=== PATIENT | female | born 1960 | race Caucasian/White ===

== ENCOUNTER 2016-10-01 07:47 | Emergency (ER) | payer MEDICAID ==
[2016-10-01] MEDS ORDERED: DIPHENHYDRAMINE HCL 50 MG/ML VIAL IV ONE (08:10)
[2016-10-01] MEDS ORDERED: HALOPERIDOL LACTATE INJ 5 MG/1 ML VIAL IV ONE (08:10)
[2016-10-01] MEDS ORDERED: NORMAL SALINE 1000 ML 1,000 ML IV ONE (08:10)
--- NOTE | 2016-10-01 08:27 | ER Document Report ---
ED General - General Chief Complaint: Abdominal Pain Stated Complaint: HEADACHE Time Seen by Provider: 10/01/16 08:02 Mode of Arrival: Ambulatory Information source: Patient Notes: 55-year-old female history of anxiety COPD presents with complaints of restlessness panic attack headache abdominal pain body aches. Patient denies any fevers or chills notes symptoms have been ongoing since Friday. Patient just moved to this area 2 week ago TRAVEL OUTSIDE OF THE [place] IN LAST 30 DAYS: No - HPI Onset: Other Onset/Duration: Persistent Quality of pain: Achy Severity: Mild Pain Level: 1 Associated symptoms: Body/muscle aches, Headache, Other Exacerbated by: Denies Relieved by: Denies Similar symptoms previously: Yes - previous panic attacks Recently seen / treated by doctor: No - Related Data Allergies/Adverse Reactions: ketorolac [From Toradol] Allergy (Verified 10/01/16 07:53) Penicillins Allergy (Verified 10/01/16 07:53) tramadol Allergy (Verified 10/01/16 07:53) Past Medical History - Social History Smoking Status: Never Smoker Cigarette use (# per day): No Chew tobacco use (# tins/day): No Smoking Education Provided: No Family History: Reviewed & Not Pertinent Patient has suicidal ideation: No Patient has homicidal ideation: No Renal/ Medical History: Denies: Hx Peritoneal Dialysis Review of Systems - Review of Systems Notes: REVIEW OF SYSTEMS: CONSTITUTIONAL : Denies fever, chills, or sweats. Denies recent illness. EENT: Admits to tongue pain CARDIOVASCULAR: Denies chest pain. Denies palpitations or racing or irregular heart beat. Denies ankle edema. RESPIRATORY: Denies cough, cold, or chest congestion. Denies shortness of breath, difficulty breathing, or wheezing. GASTROINTESTINAL: Admits to abdominal pain GENITOURINARY: Denies difficulty urinating, painful urination, burning, frequency, blood in urine, or discharge. MUSCULOSKELETAL: Denies back or neck pain or stiffness. Denies joint pain or swelling. SKIN: Denies rash, lesions or sores. HEMATOLOGIC : Denies easy bruising or bleeding. LYMPHATIC: Denies swollen, enlarged glands. NEUROLOGICAL: Admits to headache PSYCHIATRIC: Admits to anxiety ALL OTHER SYSTEMS REVIEWED AND NEGATIVE. Dictation was performed using [employer] voice recognition software PHYSICAL EXAMINATION: GENERAL: Well-appearing, well-nourished and in no acute distress. HEAD: Atraumatic, normocephalic. EYES: Pupils equal round and reactive to light, extraocular movements intact, sclera anicteric, conjunctiva are normal. ENT: Ulceration noted on tongue NECK: Normal range of motion, supple without lymphadenopathy LUNGS: Breath sounds clear to auscultation bilaterally and equal. No wheezes rales or rhonchi. HEART: Regular rate and rhythm without murmurs ABDOMEN: Soft, nontender, nondistended abdomen. No guarding, no rebound. No masses appreciated. Musculoskeletal: Patient having rhythmic motions of tongue body NEUROLOGICAL: Cranial nerves grossly intact. Normal speech, normal gait. Normal sensory, motor exams PSYCH: Panic attack tardive dyskinesia SKIN: Warm, Dry, normal turgor, no rashes or lesions noted. Physical Exam - Vital signs Vitals: Temp Pulse Resp BP Pulse Ox 98.8 F 93 24 H 150/84 H 100 10/01/16 07:53 10/01/16 07:53 10/01/16 07:53 10/01/16 07:53 10/01/16 07:53 Course - Re-evaluation Re-evalutation: 10/01/16 08:28 Physical examination is consistent with someone who is having a panic attack, she is having rhythmic motions unable to stay still on the bed. Her physical examination otherwise notes no significant abdominal pain or any life- threatening issues. I believe this is all more psychological in nature 10/01/16 09:19 Patient's headache anxiety abdominal pain have all since resolved. Patient's resting comfortably, I will discharge her home at this time to follow-up with mental health outpatient After performing a Medical Screening Examination, I estimate there is LOW risk for ACUTE GLAUCOMA, TEMPORAL ARTERITIS, MENINGITIS, INCRANIAL HEMORRHAGE, or ISCHEMIC STROKE thus I consider the discharge disposition reasonable. I have reevaluated this patient multiple times and no significant life threatening changes are noted. The patient and I have discussed the diagnosis and risks, and we agree with discharging home with close follow-up with the understanding that symptoms and presentations can change. We also discussed returning to the Emergency Department immediately if new or worsening symptoms occur. We have discussed the symptoms which are most concerning (e.g., changing or worsening symptoms, new numbness or weakness, vomiting, fever) that necessitate immediate return. - Vital Signs Vital signs: Temp Pulse Resp BP Pulse Ox 98.8 F 93 24 H 150/84 H 100 10/01/16 07:53 10/01/16 07:53 10/01/16 07:53 10/01/16 07:53 10/01/16 07:53 - Laboratory Result Diagrams: 10/01/16 08:35 10/01/16 08:35 Laboratory results interpreted by me: 10/01/16 10/01/16 10/01/16 07:50 08:35 08:35 RBC 3.64 L Hgb 10.4 L Hct 30.8 L RDW 18.8 H Plt Count 460 H Sodium 135.2 L Carbon Dioxide 19 L Glucose 57 L Direct Bilirubin 0.5 H AST 98 H ALT 79 H Urine Ketones 20 H Discharge - Discharge Clinical Impression: Tardive dyskinesia Headache Qualifiers: Headache type: unspecified Headache chronicity pattern: acute headache Intractability: not intractable Qualified Code(s): R51 - Headache Abdominal pain Qualifiers: Abdominal location: generalized Qualified Code(s): R10.84 - Generalized abdominal pain Condition: Stable Disposition: HOME, SELF-CARE Additional Instructions: Please follow-up with the mental health discharge instructions that are provided to you for further evaluation and care
[2016-10-01 08:37] LABS: APPEARANCE,URINE SLIGHTLY-CLOUDY; BILIRUBIN,URINE NEGATIVE (NEGATIVE); GLUCOSE, URINE NEGATIVE (NEGATIVE); KETONES,URINE 20 mg/dL (NEGATIVE); LEUKOCYTE ESTERASE,URINE NEGATIVE (NEGATIVE); NITRITE,URINE NEGATIVE (NEGATIVE); PROTEIN,URINE NEGATIVE (NEGATIVE); URINE SPECIFIC GRAVITY 1.005; UROBILINOGEN,URINE NEGATIVE mg/dL (<2.0)
[2016-10-01 08:46] LABS: ABSOLUTE EOSINOPHILS # (AUTO) 0.1 10^3/uL (0.0-0.6); ABSOLUTE LYMPHOCYTES (AUTO) 2.1 10^3/uL (0.5-4.7); ABSOLUTE MONOCYTES (AUTO) 0.7 10^3/uL (0.1-1.4); ABSOLUTE NEUT (AUTO) 2.8 10^3/uL (1.7-8.2); BASOPHILS % (AUTO) 0.5 % (0-2); EOSINOPHILS % (AUTO) 1.4 % (0-6); HEMATOCRIT 30.8 % (36.0-47.0); HEMOGLOBIN 10.4 g/dL (12.0-15.5); HGB HCT DIFFERENCE 0.4; LYMPHOCYTES % (AUTO) 37.3 % (13-45); MEAN CORPUSCULAR HEMOGLOBIN 28.5 pg (27.0-33.4); MEAN CORPUSCULAR HGB CONC 33.6 g/dL (32.0-36.0); MEAN CORPUSCULAR VOLUME 85 fl (80-97); MONOCYTES % (AUTO) 11.6 % (3-13); RED BLOOD COUNT 3.64 10^6/uL (3.72-5.28); RED CELL DISTRIBUTION WIDTH 18.8 % (11.5-14.0); SEGMENTED NEUTROPHILS % (AUTO) 49.2 % (42-78); WHITE BLOOD COUNT 5.7 10^3/uL (4.0-10.5)
[2016-10-01 08:58] LABS: ALANINE AMINOTRANSFERASE 79 U/L (9-52); ALBUMIN 4.3 g/dL (3.5-5.0); ALKALINE PHOSPHATASE 109 U/L (38-126); ANION GAP 17 (5-19); ASPARTATE AMINO TRANSFERASE 98 U/L (14-36); BILIRUBIN,DIRECT 0.5 mg/dL (0.0-0.4); BILIRUBIN,TOTAL 0.7 mg/dL (0.2-1.3); BLOOD UREA NITROGEN 11 mg/dL (7-20); CARBON DIOXIDE 19 mmol/L (22-30); CHLORIDE 99 mmol/L (98-107); CREATININE RESULT 0.87 mg/dL (0.52-1.25); GLUCOSE 57 mg/dL (75-110); POTASSIUM 4.1 mmol/L (3.6-5.0); SODIUM 135.2 mmol/L (137-145); TOTAL PROTEIN 8.1 g/dL (6.3-8.2)
[2016-10-01 09:33] VITALS: BP 110/60
== END 2016-10-01 10:13 | disposition home or self-care (01) ==
LOC: ER 07:47
DX: G24.01 Drug induced subacute dyskinesia (principal); T50.905A Adverse effect of unspecified drugs, medicaments and biological substances, initial encounter; F41.0 Panic disorder [episodic paroxysmal anxiety]; R10.84 Generalized abdominal pain; R51 Headache; J44.9 Chronic obstructive pulmonary disease, unspecified; M79.1 Myalgia; Z88.8 Allergy status to other drugs, medicaments and biological substances; Z88.0 Allergy status to penicillin; Z88.5 Allergy status to narcotic agent
CPT/HCPCS: 99284; 96361; 96374; 96375; 36415; 85025; 80053; 81001; J1200; J1630; J7030

== ENCOUNTER 2016-10-03 03:54 | Emergency (ER) | payer MEDICAID ==
[2016-10-03 04:03] VITALS: BP 114/70
[2016-10-03] MEDS ORDERED: NORMAL SALINE 1000 ML 1,000 ML IV ONE (04:21)
--- NOTE | 2016-10-03 04:24 | ER Document Report ---
ED General - General Chief Complaint: Back Pain Stated Complaint: BACK PAIN Time Seen by Provider: 10/03/16 04:11 Notes: Patient is a 55-year-old female who comes emergency department for chief complaint of pain in her lower back, hips, and both legs. She states that she has had this before but it is worse tonight. She states she takes Neurontin and she took this but it did not help. She denies any injury. She denies any surgeries, she denies specific diagnosis of restless legs. She denies dysuria, fever, nausea or vomiting. She states she thinks she has bulging discs. She states the only other medication she takes is Seroquel. PMH also of anxiety and COPD. TRAVEL OUTSIDE OF THE [place] IN LAST 30 DAYS: No - Related Data Allergies/Adverse Reactions: ketorolac [From Toradol] Allergy (Verified 10/01/16 07:53) Penicillins Allergy (Verified 10/01/16 07:53) tramadol Allergy (Verified 10/01/16 07:53) Past Medical History - General Information source: Patient - Social History Smoking Status: Current Every Day Smoker Smoking Education Provided: Yes - <3 min Drug Abuse: None Lives with: Alone Family History: Reviewed & Not Pertinent Patient has suicidal ideation: No Patient has homicidal ideation: No Pulmonary Medical History: Reports: Hx COPD Renal/ Medical History: Denies: Hx Peritoneal Dialysis GI Medical History: Reports: Hx Gastroesophageal Reflux Disease Psychiatric Medical History: Reports: Hx Anxiety Past Surgical History: Reports: Hx Hysterectomy, Hx Orthopedic Surgery - knee - Immunizations Hx Diphtheria, Pertussis, Tetanus Vaccination: Yes Review of Systems - Review of Systems Constitutional: No symptoms reported EENT: No symptoms reported Cardiovascular: No symptoms reported Respiratory: No symptoms reported Gastrointestinal: No symptoms reported Genitourinary: No symptoms reported Female Genitourinary: No symptoms reported Musculoskeletal: See HPI Skin: No symptoms reported Hematologic/Lymphatic: No symptoms reported Neurological/Psychological: No symptoms reported Physical Exam - Vital signs Vitals: Temp Pulse Resp BP Pulse Ox 97.9 F 102 H 20 114/70 96 10/03/16 03:58 10/03/16 03:58 10/03/16 03:58 10/03/16 03:58 10/03/16 03:58 Interpretation: Normal - General General appearance: Alert, Other - patient talking rapidly, occassionally grabbing at her legs - HEENT Head: Normocephalic, Atraumatic Eyes: Normal Pupils: PERRL - Respiratory Respiratory status: No respiratory distress Chest status: Nontender Breath sounds: Normal. No: Decreased air movement, Wheezing Chest palpation: Normal - Cardiovascular Rhythm: Regular. No: Tachycardia, Bradycardia Heart sounds: Normal auscultation, S1 appreciated, S2 appreciated Murmur: No - Abdominal Inspection: Normal Distension: No distension Bowel sounds: Normal Tenderness: Nontender. No: Tender Organomegaly: No organomegaly - Back Back: Normal, Nontender. No: Tender, Vertebra tenderness - no tenderness noted ; no saddle anesthesia; normal UE and LE ROM, sensation, and strength - Extremities General upper extremity: Normal inspection, Nontender, Normal color, Normal ROM , Normal temperature General lower extremity: Normal inspection, Nontender, Normal color, Normal ROM , Normal temperature, Normal weight bearing. No: Mary's sign - Neurological Neuro grossly intact: Yes Cognition: Normal Orientation: AAOx4 [place] Com[place] Scale Eye Opening: Spontaneous [place] Coma Scale Verbal: Oriented [place] Coma Scale Motor: Obeys Commands Los Coma Scale Total: 15 Speech: Normal Motor strength normal: LUE, RUE, LLE, RLE Sensory: Normal - Psychological Associated symptoms: Agitated - intermittently agitated - Skin Skin Temperature: Warm Skin Moisture: Dry Skin Color: Normal Course - Re-evaluation Re-evalutation: Patient denies alcohol, but told nursing staff at [facility] she has been drinking and "cutting it up on the dance floor". Patient resting quietly unless she notices me or nursing staff enter the room and then she begins to yell and state she is "in so much pain", grabbing at her legs in the process. Patient states she is here because she was having trouble sleeping. Workup unremarkable, shows mild leukopenia, some normocytic anemia, unremarkable chemistry with slightly lower LFTs compared to 2 days ago, urinalysis unremarkable, alcohol negative, urine drug screen negative. Patient was initially given Benadryl along with IV fluids, on reevaluation her symptoms have resolved. She states she feels much better. Patient will be discharged with advice to follow-up with primary care for additional management, given cyclobenzaprine in addition to her current medications because of her reported difficulty sleeping, discussed return precautions, patient states satisfaction and agreement. - Vital Signs Vital signs: Temp Pulse Resp BP Pulse Ox 97.9 F 102 H 20 114/70 96 10/03/16 03:58 10/03/16 03:58 10/03/16 03:58 10/03/16 03:58 10/03/16 03:58 - Laboratory Result Diagrams: 10/03/16 04:37 10/03/16 04:37 Laboratory results interpreted by me: 10/03/16 10/03/16 04:37 04:37 WBC 3.7 L RBC 3.31 L Hgb 9.3 L Hct 27.9 L RDW 19.6 H Seg Neuts % (Manual) 19 L Lymphocytes % (Manual) 63 H Abs Neuts (Manual) 0.7 L Chloride 108 H BUN 4 L AST 89 H ALT 66 H Albumin 3.3 L Discharge - Discharge Clinical Impression: Restless legs syndrome (RLS) Condition: Stable Disposition: HOME, SELF-CARE Additional Instructions: Workup shows some anemia, I recommend additional evaluation of this with your primary care provider. No other concerning abnormalities are seen on your exam and workup tonight. Continue current medications, use the prescription if needed additionally for your legs. Follow-up with primary care for additional management of your symptoms. Return to emergency department for any concerning or worsening symptoms including fever, swelling, numbness, or any other concerning symptoms. Prescriptions: Cyclobenzaprine HCl [Flexeril 5 mg Tablet] 1 - 2 tab PO TID PRN #15 tablet PRN Reason:
[2016-10-03] MEDS ORDERED: DIPHENHYDRAMINE HCL 50 MG/ML VIAL IV ONE (05:20)
[2016-10-03 05:24] LABS: HEMATOCRIT 27.9 % (36.0-47.0); HEMOGLOBIN 9.3 g/dL (12.0-15.5); MEAN CORPUSCULAR HEMOGLOBIN 28.2 pg (27.0-33.4); MEAN CORPUSCULAR HGB CONC 33.5 g/dL (32.0-36.0); MEAN CORPUSCULAR VOLUME 84 fl (80-97); RED BLOOD COUNT 3.31 10^6/uL (3.72-5.28); RED CELL DISTRIBUTION WIDTH 19.6 % (11.5-14.0); WHITE BLOOD COUNT 3.7 10^3/uL (4.0-10.5)
[2016-10-03 05:35] LABS: APPEARANCE,URINE CLEAR; BILIRUBIN,URINE NEGATIVE (NEGATIVE); GLUCOSE, URINE NEGATIVE (NEGATIVE); KETONES,URINE NEGATIVE (NEGATIVE); LEUKOCYTE ESTERASE,URINE NEGATIVE (NEGATIVE); NITRITE,URINE NEGATIVE (NEGATIVE); PROTEIN,URINE NEGATIVE (NEGATIVE); URINE SPECIFIC GRAVITY 1.002; UROBILINOGEN,URINE NEGATIVE mg/dL (<2.0)
[2016-10-03 05:42] LABS: ALANINE AMINOTRANSFERASE 66 U/L (9-52); ALBUMIN 3.3 g/dL (3.5-5.0); ALKALINE PHOSPHATASE 69 U/L (38-126); ANION GAP 8 (5-19); ASPARTATE AMINO TRANSFERASE 89 U/L (14-36); BILIRUBIN,DIRECT 0.4 mg/dL (0.0-0.4); BILIRUBIN,TOTAL 0.5 mg/dL (0.2-1.3); BLOOD UREA NITROGEN 4 mg/dL (7-20); CALCIUM 8.6 mg/dL (8.4-10.2); CARBON DIOXIDE 24 mmol/L (22-30); CHLORIDE 108 mmol/L (98-107); CREATININE RESULT 0.58 mg/dL (0.52-1.25); GLUCOSE 94 mg/dL (75-110); POTASSIUM 4.3 mmol/L (3.6-5.0); SODIUM 140.1 mmol/L (137-145); TOTAL PROTEIN 6.8 g/dL (6.3-8.2)
[2016-10-03 05:45] LABS: ALCOHOL < 10 mg/dL (NONE DETECTED)
[2016-10-03 05:51] LABS: URINE BARBITURATES SCREEN NEGATIVE; URINE METHADONE SCREEN NEGATIVE; URINE OPIATES LOW NEGATIVE; URINE PHENCYCLIDINE SCREEN NEGATIVE
[2016-10-03 05:56] LABS: ANISOCYTOSIS 2+; BASOPHILS % (MANUAL) 0 % (0-2); BURR CELLS SLIGHT; EOSINOPHILS % (MANUAL) 2 % (0-6); HYPOCHROMASIA SLIGHT; LYMPHOCYTES % (MANUAL) 63 % (13-45); OVALOCYTES SLIGHT; POIKILOCYTOSIS SLIGHT; POLYCHROMASIA SLIGHT; SCHISTOCYTES SLIGHT; TOTAL CELLS COUNTED 100; TOXIC GRANULATION 1+; TOXIC VACUOLATION PRESENT
== END 2016-10-03 06:52 | disposition home or self-care (01) ==
LOC: ER 03:54
DX: G25.81 Restless legs syndrome (principal); M54.9 Dorsalgia, unspecified; M54.5 Low back pain; M25.551 Pain in right hip; M25.552 Pain in left hip; M79.604 Pain in right leg; M79.605 Pain in left leg; Z79.899 Other long term (current) drug therapy; F41.9 Anxiety disorder, unspecified; J44.9 Chronic obstructive pulmonary disease, unspecified; F17.210 Nicotine dependence, cigarettes, uncomplicated
CPT/HCPCS: 99283; 96374; 36415; 80307 ×2; 85025; 80053; 81001; J1200; J7030

== ENCOUNTER 2016-10-27 19:43 | Inpatient (IN) | payer MEDICAID ==
--- NOTE | 2016-10-27 22:01 | ER Document Report ---
ED General - General Mode of Arrival: Medic Information source: Emergency Med Personnel TRAVEL OUTSIDE OF THE [place] IN LAST 30 DAYS: No - HPI Onset: Just prior to arrival Severity: Severe <MADIHA MARIA - Last Filed: 10/27/16 23:53> <BERTO PURVIS - Last Filed: 10/28/16 01:51> <SONU IRVIN - Last Filed: 10/28/16 06:07> - General Notes: Patient is a 55-year-old female who presents to the emergency department today with complaints of a possible seizure. EMS states on arrival they were told that the patient took 2 Adderall prior to their arrival which she has never taken in the past. EMS states that the patient was with men who gave the history. 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 EMS states the patient initially complained of feeling dizzy and had difficulty ambulating secondary to muscle spasms. Patient has a history of cocaine and prescription drug abuse. Significant other has now arrived at the bedside and reports additional history. He states that today the patient had what he can best describe as muscle spasms. He states that during this episode she was still able to talk to him. He does mention that she has a history of recreational drug usage in the past including opiate pain medication and crack. He states that to his knowledge , the patient did not use any recreational drugs today and he states he is not aware of whether or not the patient took adderall. (MADIHA MARIA) - Related Data Allergies/Adverse Reactions: ketorolac [From Toradol] Allergy (Verified 10/01/16 07:53) Penicillins Allergy (Verified 10/01/16 07:53) tramadol Allergy (Verified 10/01/16 07:53) Past Medical History - General Information source: [facility] Records - Social History Smoking Status: Current Every Day Smoker Cigarette use (# per day): Yes Frequency of alcohol use: Social Drug Abuse: Cocaine, Prescription drugs Family History: Reviewed & Not Pertinent Pulmonary Medical History: Reports: Hx COPD Renal/ Medical History: Denies: Hx Peritoneal Dialysis GI Medical History: Reports: Hx Gastroesophageal Reflux Disease Psychiatric Medical History: Reports: Hx Anxiety Past Surgical History: Reports: Hx Hysterectomy, Hx Orthopedic Surgery - knee - Immunizations Hx Diphtheria, Pertussis, Tetanus Vaccination: Yes <MADIHA MARIA - Last Filed: 10/27/16 23:53> Review of Systems - Review of Systems -: Yes ROS unobtainable due to patient's medical condition <MADIHA MARIA - Last Filed: 10/27/16 23:53> Physical Exam <MADIHA MARIA - Last Filed: 10/27/16 23:53> <BERTO PURVIS - Last Filed: 10/28/16 01:51> <SONU IRVIN - Last Filed: 10/28/16 06:07> - Vital signs Vitals: Resp Pulse Ox 9 L 97 10/27/16 21:54 10/27/16 21:54 - Notes Notes: PHYSICAL EXAM GENERAL: Snoring respirations. Decorticate response to painful stimuli. HEAD: Normocephalic, atraumatic. EYES: Pupils 3mm and equal, round, and reactive to light. ENT: Oral mucosa moist, tongue midline. NECK: Full range of motion. Supple. Trachea midline. LUNGS: Clear to auscultation bilaterally, no wheezes, rales, or rhonchi. No respiratory distress. HEART: Regular rate and rhythm. No murmurs, gallops, or rubs. ABDOMEN: Soft. Non-distended. Bowel sounds present in all 4 quadrants. EXTREMITIES: No edema, radial and dorsalis pedis pulses 2/4 bilaterally. No cyanosis. NEUROLOGICAL: Responds to painful stimuli with decorticate response. Snoring respirations. PSYCH: unable to assess SKIN: Warm, diaphoretic, normal turgor. No rashes or lesions noted. (CANDACEMADIHA ROBLEDO) Course <MADIHA MARIA - Last Filed: 10/27/16 23:53> <BERTO PURVIS - Last Filed: 10/28/16 01:51> <SONU IRVIN - Last Filed: 10/28/16 06:07> - Re-evaluation Re-evalutation: 10/28/16 01:04 On arrival patient was posturing in such a manner as to be suspicious for possible dystonic reaction and was given Benadryl, shortly thereafter became responsive only to very deep sternal rub and then would draw her hands and legs up as though decorticate posturing and moan, CT of the head was ordered due to this decorticate posturing and the altered mental status as there is concern for possible intracranial hemorrhage, CT scan of the head was negative. Chest x -ray shows bilateral interstitial thickening possibly acute or chronic. CBC shows leukocytosis, acetaminophen, salicylates, alcohol are undetectable, urine drug screen is only positive for benzodiazepines. Given the fever and the leukocytosis I was concerned for possible meningitis but also possible serotonin syndrome, doubt neuroleptic malignant syndrome as the temperature was only 100.2. Lumbar puncture was performed, cefepime was given empirically. Fluids were given as well. Patient is starting to wake up somewhat more but is still not making any sense, still withdraws from painful stimuli, occasionally arches her back and has rhythmic flexion extension of her arms and legs however this is not completely consistent with seizure activity as she will open and close her eyes during these episodes and appears to be trying to talk although her words do not make any sense. 10/28/16 01:51 CMP shows elevated creatinine 1.58, BUN normal at 13.46, salicylates, alcohol and acetaminophen all undetectable, CK-MB is 3.52, troponin 0 0.012, ABG shows respiratory acidosis with pH of 7.34 and a PCO2 of 51.4 urine test negative, urinalysis negative, CBC shows leukocytosis of 15.6, hemoglobin low at 10.8, platelets slightly elevated at 560 (BERTO PURVIS) 10/28/16 06:06 I have continued to monitor the patient. On most recent evaluation patient's sleeping well. She is arousable but is confused when you arouse her. This is consistent with what she has been like since I took over her care and is consistent with how she was with Dr. Purvis. I am still waiting to discuss potential admission with the hospitalist. (SONU IRVIN) - Vital Signs Vital signs: Temp Pulse Resp BP Pulse Ox 16 121/55 L 95 10/28/16 04:31 10/28/16 04:31 10/28/16 04:31 Procedures - Lumbar Puncture Lumbar puncture Time completed: 00:45 Consent obtained: No - altered mental status, possible meningitis Lumbar puncture pre-procedure: Sterile PPE donned, Betadine prep applied, Sterile drapes applied Patient position: Lying Needle size: 20 Lumbar puncture location: L4-L5 interspace Anesthetic type: 1% Lidocaine mL's of anesthetic: 2 Amount/type of drainage: 6 mL clear Number of attempts: 1 Complications: No <KLOCEK,BERTO - Last Filed: 10/28/16 01:51> Critical Care Note - Critical Care Note Total time excluding time spent on procedures (mins): 75 <BERTO PURVIS - Last Filed: 10/28/16 01:51> Discharge <MADIHA MARIA - Last Filed: 10/27/16 23:53> <BERTO PURVIS - Last Filed: 10/28/16 01:51> <SONU IRVIN - Last Filed: 10/28/16 06:07> - Discharge Clinical Impression: Altered mental status Scribe Documentation - Scribe Written by Scribe:: Vidya Paz, 10/27/2016 2201 acting as scribe for :: Hyun <MADIHA MARIA - Last Filed: 10/27/16 23:53>
--- NOTE | 2016-10-27 22:27 | RADIOLOGY REPORT (SQ) ---
EXAM DESCRIPTION: CT HEAD WITHOUT COMPLETED DATE/TIME: 10/27/2016 10:10 pm REASON FOR STUDY: AMS COMPARISON: None. TECHNIQUE: Axial images acquired through the brain without intravenous contrast. Images reviewed wi th bone, brain and subdural windows. Images stored on PACS. All CT scanners at this facility use dose modulation, iterative reconstruction, and/or weight based d osing when appropriate to reduce radiation dose to as low as reasonably achievable (ALARA). [facility]: Dose Right [facility]: CareDose [facility]: Dose Right [facility]: Teradose 4D [facility]: Smart Sencera RADIATION DOSE: mGy. LIMITATIONS: None. FINDINGS: VENTRICLES: Age-appropriate. CEREBRUM: No masses. No hemorrhage. No midline shift. Areas of low density in the white matter mos t likely due to chronic micro-vascular ischemic change. CEREBELLUM: No masses. No hemorrhage. No alteration of density. EXTRAAXIAL SPACES: Mild age-related involutional change. No fluid collections. No masses. ORBITS AND GLOBE: No intra- or extraconal masses. Normal contour of globe without masses. CALVARIUM: No fracture. PARANASAL SINUSES: Mild left sphenoid and ethmoid mucosal thickening. SOFT TISSUES: No mass or hematoma. OTHER: No other significant finding. IMPRESSION: No hemorrhage. No midline shift. Areas of low density in the white matter most likely due to chronic micro-vascular ischemic change. TECHNICAL DOCUMENTATION: JOB ID: [id number] Quality ID # [id number]: Final reports with documentation of one or more dose reduction techniques (e.g., Au tomated exposure control, adjustment of the mA and/or kV according to patient size, use of iterative reconstruction technique) 2010 [email or web address]- All Rights Reserved
--- NOTE | 2016-10-27 22:37 | RADIOLOGY REPORT (SQ) ---
EXAM DESCRIPTION: CHEST PA/LAT COMPLETED DATE/TIME: 10/27/2016 10:10 pm REASON FOR STUDY: AMS COMPARISON: None. EXAM PARAMETERS: NUMBER OF VIEWS: two views TECHNIQUE: Digital Frontal and Lateral radiographic views of the chest acquired. RADIATION DOSE: NA LIMITATIONS: none FINDINGS: LUNGS AND PLEURA: Diffuse Bilateral Interstitial thickening. No consolidation, masses or pneumothorax. No pleural effusion. MEDIASTINUM AND HILAR STRUCTURES: No masses or contour abnormalities. HEART AND VASCULAR STRUCTURES: Heart normal size. BONES: No acute findings. HARDWARE: None in the chest. OTHER: No other significant finding. IMPRESSION: Diffuse Bilateral Interstitial thickening, possibly chronic. No consolidation, masses o r pneumothorax. No pleural effusion. TECHNICAL DOCUMENTATION: JOB ID: [id number] [employer]- All Rights Reserved
[2016-10-27] MEDS ORDERED: LIDOCAINE 1% INJ-PF (10 MG/ML) 30 ML SDV INJ ONE (22:45)
[2016-10-27] MEDS ORDERED: NALOXONE HCL INJ 2 MG/2 ML DISP.SYRIN IV ONE (22:53)
[2016-10-27] MEDS ORDERED: NORMAL SALINE 1000 ML 1,000 ML IV PRN (23:20)
[2016-10-27] MEDS ORDERED: CEFEPIME 1 GM/D5W RTU 1 GM/50 ML RTUPB IV ONE (23:22)
[2016-10-28] MEDS ORDERED: CEFEPIME 1 GM/D5W RTU 1 GM/50 ML RTUPB IV ONE (00:08)
[2016-10-28 01:35] LABS: GLUCOSE,CSF 70 mg/dL (40-70)
[2016-10-28 01:59] LABS: APPEARANCE ALL TUBES CLEAR; RBC SIDE 1 127
[2016-10-28 02:03] LABS: RBC DILUENT USED NONE USED; RBC DILUTION FACTOR 1
[2016-10-28 02:09] LABS: RBC AVERAGE 162.5; RBC SIDE 2 198; TOTAL RBC SQUARES COUNTED 125
[2016-10-28 02:11] LABS: WHITE BLOOD CELL,CSF 2 /uL (0-5)
[2016-10-28 02:27] LABS: APPEARANCE ALL TUBES CLEAR
[2016-10-28 02:28] LABS: RBC AVERAGE 1.5; RBC DILUENT USED NONE USED; RBC DILUTION FACTOR 1; RBC SIDE 1 2; RBC SIDE 2 1; TOTAL RBC SQUARES COUNTED 225
[2016-10-28 02:29] LABS: WHITE BLOOD CELL,CSF 5 /uL (0-5)
[2016-10-28 06:17] LABS: ARTERIAL BLOOD BASE EXCESS 0.5 mmol/L
[2016-10-28 06:18] LABS: URINE BARBITURATES SCREEN NEGATIVE; URINE METHADONE SCREEN NEGATIVE; URINE OPIATES LOW NEGATIVE; URINE PHENCYCLIDINE SCREEN NEGATIVE
[2016-10-28 06:20] LABS: APPEARANCE,URINE CLEAR; BILIRUBIN,URINE NEGATIVE (NEGATIVE); GLUCOSE, URINE NEGATIVE (NEGATIVE); KETONES,URINE NEGATIVE (NEGATIVE); LEUKOCYTE ESTERASE,URINE NEGATIVE (NEGATIVE); NITRITE,URINE NEGATIVE (NEGATIVE); PROTEIN,URINE NEGATIVE (NEGATIVE); UROBILINOGEN,URINE NEGATIVE mg/dL (<2.0)
[2016-10-28 06:22] LABS: ABSOLUTE BASOPHILS # (AUTO) 0.1 10^3/uL (0.0-0.2); ABSOLUTE LYMPHOCYTES (AUTO) 0.9 10^3/uL (0.5-4.7); ABSOLUTE MONOCYTES (AUTO) 0.4 10^3/uL (0.1-1.4); ABSOLUTE NEUT (AUTO) 14.2 10^3/uL (1.7-8.2); BASOPHILS % (AUTO) 0.5 % (0-2); EOSINOPHILS % (AUTO) 0.1 % (0-6); HEMATOCRIT 32.8 % (36.0-47.0); HEMOGLOBIN 10.8 g/dL (12.0-15.5); HGB HCT DIFFERENCE -0.4; LYMPHOCYTES % (AUTO) 5.8 % (13-45); MEAN CORPUSCULAR HEMOGLOBIN 28.5 pg (27.0-33.4); MEAN CORPUSCULAR VOLUME 86 fl (80-97); MONOCYTES % (AUTO) 2.8 % (3-13); RED CELL DISTRIBUTION WIDTH 18.9 % (11.5-14.0); SEGMENTED NEUTROPHILS % (AUTO) 90.8 % (42-78); WHITE BLOOD COUNT 15.6 10^3/uL (4.0-10.5)
[2016-10-28 06:25] LABS: PROTHROMBIN TIME 13.6 SEC (11.4-15.4)
[2016-10-28 06:26] LABS: ALANINE AMINOTRANSFERASE 54 U/L (9-52); ALBUMIN 4.5 g/dL (3.5-5.0); ALCOHOL < 10 mg/dL (NONE DETECTED); ALKALINE PHOSPHATASE 128 U/L (38-126); ASPARTATE AMINO TRANSFERASE 55 U/L (14-36); BILIRUBIN,DIRECT 0.6 mg/dL (0.0-0.4); BILIRUBIN,TOTAL 0.8 mg/dL (0.2-1.3); BLOOD UREA NITROGEN 13 mg/dL (7-20); CARBON DIOXIDE 23 mmol/L (22-30); CHLORIDE 98 mmol/L (98-107); CREATINE KINASE 120 U/L (30-135); CREATININE RESULT 1.58 mg/dL (0.52-1.25); GLUCOSE 98 mg/dL (75-110); PARTIAL THROMBOPLASTIN TIME 30.6 SEC (23.5-35.8); SODIUM 140.8 mmol/L (137-145); TOTAL PROTEIN 8.9 g/dL (6.3-8.2)
[2016-10-28 06:28] LABS: ANION GAP 20 (5-19); CREATINE KINASE MB 3.52 ng/mL (<4.55); TROPONIN I < 0.012 ng/mL
[2016-10-28] MEDS ORDERED: PROMETHAZINE HCL 25 MG TABLET PO PRN (08:10)
[2016-10-28] MEDS ORDERED: IPRATROPIUM/ALBUTEROL 0.5-2.5 MG/3 ML AMPUL NEB PRN (08:10)
[2016-10-28] MEDS ORDERED: ACETAMINOPHEN 650 MG SUPP.RECT PR PRN (08:10)
[2016-10-28] MEDS ORDERED: LORAZEPAM INJ 2 MG/1 ML VIAL IV PRN (08:23)
[2016-10-28] MEDS ORDERED: LIDOCAINE 2% URO-JET 5 ML KIT MM ONE (08:24)
--- NOTE | 2016-10-28 08:56 | PDOC H&P ---
History of Present Illness Admission Date/PCP: 10/28/16 08:10 History of Present Illness: History is obtained from ED provider as patient is unable to participate in exam and is unaccomapanied at the time I see her. BRII STONE is a 55 year old female who presents to the emergency department today with complaints of a possible seizure. EMS states on arrival they were told that the patient took 2 Adderall prior to their arrival which she has never taken in the past. EMS states that the patient was with men who gave the history. 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 EMS states the patient initially complained of feeling dizzy and had difficulty ambulating secondary to muscle spasms. Patient has a history of cocaine and prescription drug abuse. Significant other has now arrived at the bedside and reports additional history. He states that today the patient had what he can best describe as muscle spasms. He states that during this episode she was still able to talk to him. He does mention that she has a history of recreational drug usage in the past including opiate pain medication and crack. He states that to his knowledge , the patient did not use any recreational drugs today and he states he is not aware of whether or not the patient took adderall. Pt underwent CT of the head and LP both of which were unremarkable. Patient is referred to the hospitalist service for overdose of unknown intent. Past Medical History Pulmonary Medical History: Reports: Chronic Obstructive Pulmonary Disease (COPD) GI Medical History: Reports: Gastroesophageal Reflux Disease Psychiatric Medical History: Reports: Substance Abuse, Tobacco Dependency Past Surgical History Past Surgical History: Reports: Hysterectomy, Orthopedic Surgery - knee Social History Smoking Status: Current Every Day Smoker Amount of Alcoholic Beverages Per Day: unknown Drugs: Cocaine Hx Prescription Drug Abuse: Yes - Advance Directive Resuscitation Status: Full Code Surrogate healthcare decision maker:: Family History Family History: Reviewed & Not Pertinent Family History: unable to obtain due to encephalopathy Parental Family History Reviewed: No Children Family History Reviewed: No Sibling(s) Family History Reviewed.: No Medication/Allergy Home Medications: Fluoxetine HCl [Prozac] 40 mg PO BID 10/28/16 Gabapentin [Gabapentin] 400 mg PO QID 10/28/16 Linaclotide [Linzess] 290 mcg PO DAILY 10/28/16 Omeprazole Magnesium [Prilosec Otc] 40 mg PO DAILY 10/28/16 Quetiapine Fumarate 1 - 2 tab PO QPM 10/28/16 Allergies/Adverse Reactions: ketorolac [From Toradol] Allergy (Verified 10/01/16 07:53) Penicillins Allergy (Verified 10/01/16 07:53) tramadol Allergy (Verified 10/01/16 07:53) Review of Systems ROS unobtainable: Due to mental status Physical Exam Vital Signs: Temp Pulse Resp BP Pulse Ox 23 H 137/78 H 96 10/28/16 07:32 10/28/16 07:12 10/28/16 07:12 General appearance: PRESENT: mild distress, well-developed, well-nourished Head exam: PRESENT: atraumatic, normocephalic Eye exam: PRESENT: conjunctiva pink, PERRLA - mydriasis. ABSENT: conjunctival injection, EOMI - unable to cooperate, scleral icterus Ear exam: PRESENT: normal external ear exam Mouth exam: PRESENT: dry mucosa, tongue midline Neck exam: ABSENT: JVD, lymphadenopathy, thyromegaly, tracheal deviation Respiratory exam: PRESENT: clear to auscultation chandan, prolonged expiratory phas , symmetrical, unlabored. ABSENT: accessory muscle use, rales, rhonchi, tachypnea, wheezes Cardiovascular exam: PRESENT: RRR, +S1, +S2. ABSENT: diastolic murmur, gallop, rubs, systolic murmur Pulses: PRESENT: normal dorsalis pedis pul Vascular exam: PRESENT: normal capillary refill GI/Abdominal exam: PRESENT: diminished bowel sounds, soft, other - palpable bladder. ABSENT: distended, firm, guarding, mass, Chao's sign, organolmegaly , rebound, rigid, tenderness Rectal exam: PRESENT: deferred Extremities exam: PRESENT: full ROM. ABSENT: clubbing, pedal edema Neurological exam: PRESENT: alert, awake, oriented to person, CN II-XII grossly intact. ABSENT: oriented to place, oriented to time, oriented to situation, motor sensory deficit Psychiatric exam: PRESENT: agitated. ABSENT: homicidal ideation, suicidal ideation Focused psych exam: PRESENT: psychomotor agitation, restlessness Skin exam: PRESENT: dry, intact, warm. ABSENT: cyanosis, rash Results Laboratory Results: 10/27/16 10/27/16 10/27/16 20:25 20:25 20:25 WBC Hgb Hct Plt Count INR ABG pH ABG pCO2 ABG pO2 ABG HCO3 Sodium 140.8 Potassium 4.0 Chloride 98 Carbon Dioxide 23 Anion Gap 20 H BUN 13 Creatinine 1.58 H Glucose 98 Lactic Acid 2.9 H Calcium 10.0 Total Bilirubin 0.8 Direct Bilirubin 0.6 H AST 55 H ALT 54 H Alkaline Phosphatase 128 H Troponin I < 0.012 Total Protein 8.9 H Albumin 4.5 Ur Specific [place] Urine Ketones Urine WBC (Auto) U Hyaline Cast (Auto) CSF WBC CSF Glucose CSF Total Protein Salicylates < 1.0 L Acetaminophen < 10 L U Benzodiazepines Scrn Serum Alcohol < 10 10/27/16 10/27/16 10/27/16 20:25 20:25 21:30 WBC 15.6 H Hgb 10.8 L Hct 32.8 L Plt Count 560 H INR 0.97 ABG pH ABG pCO2 ABG pO2 ABG HCO3 Sodium Potassium Chloride Carbon Dioxide Anion Gap BUN Creatinine Glucose Lactic Acid Calcium Total Bilirubin Direct Bilirubin AST ALT Alkaline Phosphatase Troponin I Total Protein Albumin Ur Specific [place] 1.010 Urine Ketones NEGATIVE Urine WBC (Auto) 1 U Hyaline Cast (Auto) 9 CSF WBC CSF Glucose CSF Total Protein Salicylates Acetaminophen U Benzodiazepines Scrn Serum Alcohol 10/27/16 10/27/16 10/28/16 21:30 21:30 00:37 WBC Hgb Hct Plt Count INR ABG pH 7.34 L ABG pCO2 51.4 H ABG pO2 74.8 L ABG HCO3 26.9 H Sodium Potassium Chloride Carbon Dioxide Anion Gap BUN Creatinine Glucose Lactic Acid Calcium Total Bilirubin Direct Bilirubin AST ALT Alkaline Phosphatase Troponin I Total Protein Albumin Ur Specific [place] Urine Ketones Urine WBC (Auto) U Hyaline Cast (Auto) CSF WBC 2 CSF Glucose CSF Total Protein Salicylates Acetaminophen U Benzodiazepines Scrn UNCONFIRMED POSITIVE Serum Alcohol 10/28/16 10/28/16 10/28/16 00:37 00:37 06:40 WBC Hgb Hct Plt Count INR ABG pH ABG pCO2 ABG pO2 ABG HCO3 Sodium Potassium Chloride Carbon Dioxide Anion Gap BUN Creatinine Glucose Lactic Acid 0.7 Calcium Total Bilirubin Direct Bilirubin AST ALT Alkaline Phosphatase Troponin I Total Protein Albumin Ur Specific [place] Urine Ketones Urine WBC (Auto) U Hyaline Cast (Auto) CSF WBC 5 CSF Glucose 70 CSF Total Protein 45 Salicylates Acetaminophen U Benzodiazepines Scrn Serum Alcohol EKG Comments: QT prolongation Impressions: Chest X-Ray 10/27/16 00:00 IMPRESSION: Diffuse Bilateral Interstitial thickening, possibly chronic. No consolidation, masses or pneumothorax. No pleural effusion. Head CT 10/27/16 00:00 IMPRESSION: No hemorrhage. No midline shift. Areas of low density in the white matter most likely due to chronic micro-vascular ischemic change. Assessment & Plan - Diagnosis (1) Overdose Qualifiers: Encounter type: initial encounter Injury intent: undetermined intent Qualified Code(s): T50.904A - Poisoning by unspecified drugs, medicaments and biological substances, undetermined, initial encounter Is this a current diagnosis for this admission?: Yes Plan: Patient appears to have overdosed on Seraquel. Symptoms consistent with Seroquel overdose include myoclonic jerking, mydriasis, altered mental status, anticholinergic side effects, and QT prolongation. Place patient on IV fluids and Ativan as needed. Patient's drug screen was positive for benzodiazepines, but review of patient on the [place] controlled substance database reveals the patient has not had a prescription for benzodiazepines since June of this year. Suspect patient is abusing medication that does not belong to her. Will place patient on IVC as we are not sure of the intent of this overdose. Patient will be admitted IM to monitor her q. RS/QT. We will avoid QT prolonging medications. This was discussed with the [place] [facility]. (2) Altered mental status Qualifiers: Altered mental status type: delirium Qualified Code(s): R41.0 - Disorientation, unspecified Is this a current diagnosis for this admission?: Yes Plan: Patient with altered mental status secondary to polysubstance overdose. (3) COPD (chronic obstructive pulmonary disease) Qualifiers: COPD type: emphysema Emphysema type: unspecified Qualified Code(s): J43.9 - Emphysema, unspecified Is this a current diagnosis for this admission?: Yes Plan: Place patient on DuoNeb's as needed (4) Anemia Qualifiers: Anemia type: unspecified type Qualified Code(s): D64.9 - Anemia, unspecified Is this a current diagnosis for this admission?: Yes Plan: Will monitor. (5) GERD (gastroesophageal reflux disease) Qualifiers: Esophagitis presence: esophagitis presence not specified Qualified Code(s) : K21.9 - Gastro-esophageal reflux disease without esophagitis Is this a current diagnosis for this admission?: Yes Plan: Place on IV Pepcid twice daily (6) Underweight Is this a current diagnosis for this admission?: Yes Plan: We will consult dietary - Time Time Spent: 50 to 70 Minutes Medications reviewed and adjusted accordingly: Yes - Inpatient Certification Based on my medical assessment, after consideration of the patient's comorbidities, presenting symptoms, or acuity I expect that the services needed warrant INPATIENT care.: Yes I certify that my determination is in accordance with my understanding of Medicare's requirements for reasonable and necessary INPATIENT services [42 CFR 412.3e].: Yes Medical Necessity: Need For Continuous Telemetry Monitoring Post Hospital Care: D/C [facility] [place] Documentation
[2016-10-28 09:31] LABS: MAGNESIUM 1.9 mg/dL (1.6-2.3)
[2016-10-28 09:42] LABS: CREATINE KINASE MB 4.09 ng/mL (<4.55)
[2016-10-28 09:46] LABS: TROPONIN I < 0.012 ng/mL
[2016-10-28] MEDS ORDERED: ENOXAPARIN SODIUM INJ 40 MG/0.4 ML DISP.SYRIN SUBCUT SCH (10:00)
[2016-10-28] MEDS ORDERED: FAMOTIDINE INJ/PF 20 MG/2 ML SDV IV SCH (10:00)
--- NOTE | 2016-10-28 12:07 | EKG REPORT ---
SEVERITY:- ABNORMAL ECG - SINUS RHYTHM RAA, CONSIDER BIATRIAL ABNORMALITIES PROLONGED QT INTERVAL : Confirmed by: Rob Lawson 28-Oct-2016 12:06:49
--- NOTE | 2016-10-28 12:07 | EKG REPORT ---
SEVERITY:- BORDERLINE ECG - SINUS RHYTHM BORDERLINE PROLONGED QT INTERVAL : Confirmed by: oRb Lawson 28-Oct-2016 12:06:42
[2016-10-28 12:14] LABS: APPEARANCE,URINE CLEAR; BILIRUBIN,URINE NEGATIVE (NEGATIVE); GLUCOSE, URINE NEGATIVE (NEGATIVE); KETONES,URINE 20 mg/dL (NEGATIVE); LEUKOCYTE ESTERASE,URINE NEGATIVE (NEGATIVE); NITRITE,URINE NEGATIVE (NEGATIVE); PROTEIN,URINE 30 mg/dL (NEGATIVE); URINE SPECIFIC GRAVITY 1.012; UROBILINOGEN,URINE NEGATIVE mg/dL (<2.0)
[2016-10-28] MEDS: METRONIDAZOLE 500 MG/NS RTU 100 ML IV SCH ×3 (12:37→21:56)
[2016-10-28] MEDS: ENOXAPARIN SODIUM INJ 30 MG/0.3 ML DISP.SYRIN SUBCUT SCH (12:38)
[2016-10-28] MEDS: FAMOTIDINE INJ/PF 20 MG/2 ML SDV IV SCH ×2 (12:38→21:58)
[2016-10-28] MEDS: LORAZEPAM INJ 2 MG/1 ML VIAL IV PRN ×3 (12:50→22:02)
[2016-10-28 14:40] LABS: CREATINE KINASE MB 3.76 ng/mL (<4.55)
[2016-10-28 14:45] LABS: TROPONIN I < 0.012 ng/mL
--- NOTE | 2016-10-28 15:23 | PSYCHOLOGICAL NOTE ---
Psych Note - Psych Note Psych Note: Patient is a 55 year old female who presented due to potential overdose. Patient this morning was mostly noncommunicative. Patient has been admitted to Hospitalist's Services. Per MD reports, it is suspected that the patient overdosed on Seroquel. Hospitalist has petitioned IVC due to unknown intent. Jerzy [phone] states the patient was with him looking at property and was complaining about dizzy spells. He states by the time they got home, she couldnt walk straight, and laid down on the couch and started having spasm type episodes. He states they did have a small argument about their dog, and he did tell her that if she didn't like it she could go back to her mothers. He states he does not know of any prior suicide attempts (during their 6-7 year relationship) He states she is prescribed pain medications due to chronic pain , sleep medications due to PTSD. He states all of her medications were cut off 4-5 months ago and just recently got a new PCM Will track patient. Will attempt to evaluate at a later time.
[2016-10-28 20:30] LABS: URINE BARBITURATES SCREEN NEGATIVE; URINE METHADONE SCREEN NEGATIVE; URINE OPIATES LOW NEGATIVE; URINE PHENCYCLIDINE SCREEN NEGATIVE
[2016-10-28 21:23] LABS: CREATINE KINASE MB 3.84 ng/mL (<4.55)
[2016-10-28 21:24] LABS: TROPONIN I < 0.012 ng/mL
[2016-10-28] MEDS: NORMAL SALINE 1000 ML 1,000 ML IV PRN (21:53)
[2016-10-29] MEDS: LORAZEPAM INJ 2 MG/1 ML VIAL IV PRN ×2 (02:03→09:39)
[2016-10-29] MEDS: METRONIDAZOLE 500 MG/NS RTU 100 ML IV SCH ×4 (02:07→21:05)
[2016-10-29 06:19] LABS: ABSOLUTE BASOPHILS # (AUTO) 0.2 10^3/uL (0.0-0.2); ABSOLUTE LYMPHOCYTES (AUTO) 1.7 10^3/uL (0.5-4.7); ABSOLUTE MONOCYTES (AUTO) 0.6 10^3/uL (0.1-1.4); ABSOLUTE NEUT (AUTO) 7.9 10^3/uL (1.7-8.2); BASOPHILS % (AUTO) 1.5 % (0-2); EOSINOPHILS % (AUTO) 0.3 % (0-6); HEMATOCRIT 33.3 % (36.0-47.0); HEMOGLOBIN 10.8 g/dL (12.0-15.5); HGB HCT DIFFERENCE -0.9; LYMPHOCYTES % (AUTO) 16.2 % (13-45); MEAN CORPUSCULAR HEMOGLOBIN 28.2 pg (27.0-33.4); MEAN CORPUSCULAR HGB CONC 32.5 g/dL (32.0-36.0); MEAN CORPUSCULAR VOLUME 87 fl (80-97); MONOCYTES % (AUTO) 5.9 % (3-13); RED BLOOD COUNT 3.83 10^6/uL (3.72-5.28); RED CELL DISTRIBUTION WIDTH 19.9 % (11.5-14.0); SEGMENTED NEUTROPHILS % (AUTO) 76.1 % (42-78); WHITE BLOOD COUNT 10.4 10^3/uL (4.0-10.5)
[2016-10-29] MEDS: NORMAL SALINE 1000 ML 1,000 ML IV PRN ×2 (06:21→23:46)
[2016-10-29 07:42] LABS: ALANINE AMINOTRANSFERASE 43 U/L (9-52); ALBUMIN 3.4 g/dL (3.5-5.0); ALKALINE PHOSPHATASE 89 U/L (38-126); ANION GAP 12 (5-19); ASPARTATE AMINO TRANSFERASE 47 U/L (14-36); BILIRUBIN,DIRECT 0.4 mg/dL (0.0-0.4); BILIRUBIN,TOTAL 0.5 mg/dL (0.2-1.3); BLOOD UREA NITROGEN 10 mg/dL (7-20); CALCIUM 8.8 mg/dL (8.4-10.2); CARBON DIOXIDE 21 mmol/L (22-30); CHLORIDE 109 mmol/L (98-107); CREATININE RESULT 0.64 mg/dL (0.52-1.25); GLUCOSE 92 mg/dL (75-110); MAGNESIUM 1.5 mg/dL (1.6-2.3); POTASSIUM 3.4 mmol/L (3.6-5.0); SODIUM 141.7 mmol/L (137-145); TOTAL PROTEIN 6.7 g/dL (6.3-8.2)
[2016-10-29] MEDS: ENOXAPARIN SODIUM INJ 30 MG/0.3 ML DISP.SYRIN SUBCUT SCH (09:40)
[2016-10-29] MEDS: FAMOTIDINE INJ/PF 20 MG/2 ML SDV IV SCH (09:40)
--- NOTE | 2016-10-29 10:12 | RADIOLOGY REPORT (SQ) ---
EXAM DESCRIPTION: CHEST SINGLE VIEW COMPLETED DATE/TIME: 10/29/2016 9:32 am REASON FOR STUDY: concern for aspiration COMPARISON: 10/27/2016 chest films EXAM PARAMETERS: NUMBER OF VIEWS: One view. TECHNIQUE: Single frontal radiographic view of the chest acquired. RADIATION DOSE: NA LIMITATIONS: None. FINDINGS: LUNGS AND PLEURA: Faintly radiopaque deven are present in the left upper lobe, left midl ofe, and left lung base. There are increased interstitial markings bilaterally. No dense consolidation worrisome for pneumonia. No fluffy alveolar perihilar infiltrates worrisome f or pulmonary edema. No pleural effusion. No pneumothorax. MEDIASTINUM AND HILAR STRUCTURES: No masses. Contour normal. HEART AND VASCULAR STRUCTURES: Heart normal in size. Normal vasculature. BONES: No acute findings. HARDWARE: None in the chest. OTHER: No other significant finding. IMPRESSION: No acute findings. Chronic appearing increased interstitial markings with lung parenchymal deven on the left. TECHNICAL DOCUMENTATION: JOB ID: [id number]
[2016-10-29] MEDS ORDERED: ZIPRASIDONE MESYLATE INJ/PF 20 MG SDV IM ONE (11:00)
[2016-10-29] MEDS ORDERED: LANSOPRAZOLE 30 MG TAB.RAP.DR PO ONE (11:00)
--- NOTE | 2016-10-29 12:21 | EKG REPORT ---
SEVERITY:- NORMAL ECG - SINUS RHYTHM : Confirmed by: Blanca Rowley MD 29-Oct-2016 12:21:11
--- NOTE | 2016-10-29 15:29 | Physician Advisory Note ---
Physician Advisor ProgressNote .: Pursuant to the plan for [facility], I have reviewed the medical record for this patient. Physician Advisor Statement: Please consider documentin. "Ac Kidney Injury, likely due to ____" [ATN from volume depletion? ...] 2. "Acute Respiratory Acidosis due to depressed respirations from OD..." 3. What is being tx'd with Flagyl? Status: Came in w/very altered mental status, with depressed & snoring resp.s (alt w/ tachypnea), decorticate posturing to pain, fever, leukocytosis, Cr 1.58, prolonged QT interval. - Brought in under IVC papers, quite sick. . Still very altered this PM - enough that the psych consult could not be done - and having recurrent tachycardia & tachypnea today. Clearly not going to be improved enough for d/c this PM. Appropriate for Inpatient status. Thanks! CK
--- NOTE | 2016-10-29 16:31 | PDOC PROGRESS REPORT ---
Subjective Progress Note for:: 10/29/16 Subjective:: Patient was having outbursts today. She is in her room crying stating she wants to go home. She has been having pressured speech. I discussed her case with her mother and she reports that her daughter has a long history of substance abuse and that she has a sister who of an overdose recently within the last 12 months. Boyfriend is at bedside and believes that she is treating pills with people to hear them. He reports she has been having dizzy spells. Unable to obtain review of systems from patient secondary to her mental status Physical Exam Vital Signs: Temp Pulse Resp BP Pulse Ox 97.7 F 86 22 H 151/93 H 98 10/29/16 11:49 10/29/16 11:49 10/29/16 11:49 10/29/16 11:49 10/29/16 11:49 Intake & Output 10/28/16 10/29/16 10/30/16 06:59 06:59 06:59 Intake Total 2635 357 Output Total 1750 300 Balance 885 57 Weight 49.5 kg Exam: General: Awake alert and oriented x2, no acute respiratory distress HEENT: AT/NC, PERRL, EOMI, oropharynx is moist, pink, no scleral icterus, no conjunctival injection Neck: No JVD, trachea midline Chest: Prolonged expiratory phase, Clear to auscultation bilaterally, no wheezes rhonchi or rales CV: Tachycardic, Regular rate and rhythm, normal S1 and S2, no murmur, rub, or gallop Abdomen: Soft, nontender to palpation, nondistended, active bowel sounds; no rebound, rigidity, or guarding Extremities: No cyanosis or edema, +clubbing Neuro: Cranial nerves II through XII are grossly intact without focal deficits; awake alert and oriented x2 Psych: manic Results Laboratory Results: 10/29/16 05:52 10/29/16 07:18 10/29/16 10/29/16 10/29/16 05:52 05:52 07:18 WBC 10.4 RBC 3.83 Hgb 10.8 L Hct 33.3 L MCV 87 MCH 28.2 MCHC 32.5 RDW 19.9 H Plt Count 487 H Seg Neutrophils % 76.1 Lymphocytes % 16.2 Monocytes % 5.9 Eosinophils % 0.3 Basophils % 1.5 Absolute Neutrophils 7.9 Absolute Lymphocytes 1.7 Absolute Monocytes 0.6 Absolute Eosinophils 0.0 Absolute Basophils 0.2 Sodium Cancelled 141.7 Potassium Cancelled 3.4 L Chloride Cancelled 109 H Carbon Dioxide Cancelled 21 L Anion Gap Cancelled 12 BUN Cancelled 10 Creatinine Cancelled 0.64 Est GFR ( Amer) Cancelled > 60 Est GFR (Non-Af Amer) Cancelled > 60 Glucose Cancelled 92 Calcium Cancelled 8.8 Magnesium Cancelled 1.5 L Total Bilirubin Cancelled 0.5 AST Cancelled 47 H ALT Cancelled 43 Alkaline Phosphatase Cancelled 89 Total Protein Cancelled 6.7 Albumin Cancelled 3.4 L 10/28/16 10/28/16 10/28/16 08:40 08:40 14:09 Creatine Kinase 123 CK-MB (CK-2) 4.09 3.76 Troponin I < 0.012 < 0.012 10/28/16 10/29/16 20:20 07:18 Creatine Kinase 91 CK-MB (CK-2) 3.84 Troponin I < 0.012 Impressions: Head CT 10/27/16 00:00 IMPRESSION: No hemorrhage. No midline shift. Areas of low density in the white matter most likely due to chronic micro-vascular ischemic change. Chest X-Ray 10/29/16 06:00 IMPRESSION: No acute findings. Chronic appearing increased interstitial markings with lung parenchymal deven on the left. Assessment & Plan - Diagnosis (1) Overdose Qualifiers: Encounter type: subsequent encounter Injury intent: undetermined intent Qualified Code(s): T50.904D - Poisoning by unspecified drugs, medicaments and biological substances, undetermined, subsequent encounter Is this a current diagnosis for this admission?: Yes Plan: Patient appears to have overdosed on Seraquel. Symptoms consistent with Seroquel overdose include myoclonic jerking, mydriasis, altered mental status, anticholinergic side effects, and QT prolongation. Patient's drug screen was positive for benzodiazepines, but review of patient on the [place] controlled substance database reveals the patient has not had a prescription for benzodiazepines since June of this year. Suspect patient is abusing medication that does not belong to her. Will place patient on IVC as we are not sure of the intent of this overdose. Patient QTc is improved today. (2) Altered mental status Qualifiers: Altered mental status type: delirium Qualified Code(s): R41.0 - Disorientation, unspecified Is this a current diagnosis for this admission?: Yes Plan: Patient appears to be overtly manic today (3) COPD (chronic obstructive pulmonary disease) Qualifiers: COPD type: emphysema Emphysema type: unspecified Qualified Code(s): J43.9 - Emphysema, unspecified Is this a current diagnosis for this admission?: Yes Plan: Place patient on DuoNeb's as needed (4) Anemia Qualifiers: Anemia type: unspecified type Qualified Code(s): D64.9 - Anemia, unspecified Is this a current diagnosis for this admission?: Yes (5) GERD (gastroesophageal reflux disease) Qualifiers: Esophagitis presence: esophagitis presence not specified Qualified Code(s) : K21.9 - Gastro-esophageal reflux disease without esophagitis Is this a current diagnosis for this admission?: Yes Plan: Transition to PPI (6) Underweight Is this a current diagnosis for this admission?: Yes (7) Bipolar disorder (manic depression) Qualifiers: Active/Remission status: currently active Current bipolar episode type: manic Current episode severity: moderate Qualified Code(s): F31.12 - Bipolar disorder, current episode manic without psychotic features, moderate Is this a current diagnosis for this admission?: Yes Plan: Patient's mother reports to me that she has a history of bipolar disorder in addition to PTSD. Her mother reports that she feels her medications have been wrong for many years. At this time, will continue patient's Prozac, initiate patient on Geodon, and place patient on Depakote 3 times daily. Have consulted psychology and are pending the recommendations At this time, given patient's overt kristie feel that she would be best suited as an inpatient. Continue IVC - Time Time Spent with patient: 35 or more minutes Medications reviewed and adjusted accordingly: Yes Anticipated discharge: Other Within: when bed available
[2016-10-29] MEDS ORDERED: LANSOPRAZOLE 30 MG TAB.RAP.DR PO SCH (17:00)
[2016-10-29] MEDS: GABAPENTIN 300 MG CAPSULE PO SCH ×2 (17:32→21:05)
[2016-10-29] MEDS: DIVALPROEX SODIUM 500 MG TAB.SR.24H PO SCH ×2 (17:32→19:55)
[2016-10-29] MEDS ORDERED: POTASSIUM CHLORIDE 10 MEQ TABLET.SA PO ONE (17:33)
[2016-10-29] MEDS: MAGNESIUM SULFATE/D5W 1 GM/100 ML RTUPB IV SCH ×2 (17:41→19:56)
[2016-10-29] MEDS: FLUOXETINE HCL 20 MG CAPSULE PO SCH (21:05)
[2016-10-29] MEDS ORDERED: ZIPRASIDONE HCL 40 MG CAPSULE PO SCH (22:00)
[2016-10-30] MEDS: METRONIDAZOLE 500 MG/NS RTU 100 ML IV SCH ×2 (02:39→08:05)
[2016-10-30 06:23] LABS: ABSOLUTE BASOPHILS # (AUTO) 0.2 10^3/uL (0.0-0.2); ABSOLUTE EOSINOPHILS # (AUTO) 0.2 10^3/uL (0.0-0.6); ABSOLUTE LYMPHOCYTES (AUTO) 3.1 10^3/uL (0.5-4.7); ABSOLUTE MONOCYTES (AUTO) 0.7 10^3/uL (0.1-1.4); ABSOLUTE NEUT (AUTO) 2.4 10^3/uL (1.7-8.2); BASOPHILS % (AUTO) 2.5 % (0-2); EOSINOPHILS % (AUTO) 2.6 % (0-6); HEMATOCRIT 30.9 % (36.0-47.0); HEMOGLOBIN 10.2 g/dL (12.0-15.5); HGB HCT DIFFERENCE -0.3; LYMPHOCYTES % (AUTO) 47.8 % (13-45); MEAN CORPUSCULAR HEMOGLOBIN 28.4 pg (27.0-33.4); MEAN CORPUSCULAR HGB CONC 32.9 g/dL (32.0-36.0); MEAN CORPUSCULAR VOLUME 86 fl (80-97); MONOCYTES % (AUTO) 10.8 % (3-13); RED BLOOD COUNT 3.58 10^6/uL (3.72-5.28); RED CELL DISTRIBUTION WIDTH 20.5 % (11.5-14.0); SEGMENTED NEUTROPHILS % (AUTO) 36.3 % (42-78); WHITE BLOOD COUNT 6.5 10^3/uL (4.0-10.5)
[2016-10-30 06:30] LABS: ALANINE AMINOTRANSFERASE 42 U/L (9-52); ALKALINE PHOSPHATASE 76 U/L (38-126); ANION GAP 9 (5-19); ASPARTATE AMINO TRANSFERASE 44 U/L (14-36); BILIRUBIN,DIRECT 0.4 mg/dL (0.0-0.4); BILIRUBIN,TOTAL 0.4 mg/dL (0.2-1.3); BLOOD UREA NITROGEN 6 mg/dL (7-20); CALCIUM 8.5 mg/dL (8.4-10.2); CARBON DIOXIDE 23 mmol/L (22-30); CHLORIDE 107 mmol/L (98-107); CREATININE RESULT 0.57 mg/dL (0.52-1.25); GLUCOSE 75 mg/dL (75-110); MAGNESIUM 1.8 mg/dL (1.6-2.3); PHOSPHORUS 3.5 mg/dL (2.5-4.5); SODIUM 138.6 mmol/L (137-145); TOTAL PROTEIN 6.3 g/dL (6.3-8.2)
[2016-10-30 06:37] LABS: PREALBUMIN 7.8 mg/dL (17.6-36.0)
[2016-10-30 06:48] LABS: POTASSIUM 4.6 mmol/L (3.6-5.0)
[2016-10-30] MEDS: FLUOXETINE HCL 20 MG CAPSULE PO SCH (10:25)
[2016-10-30] MEDS: DIVALPROEX SODIUM 500 MG TAB.SR.24H PO SCH (10:25)
[2016-10-30] MEDS: ENOXAPARIN SODIUM INJ 30 MG/0.3 ML DISP.SYRIN SUBCUT SCH (10:26)
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
[2016-10-30 12:36] VITALS: BP 136/89
--- NOTE | 2016-10-31 08:18 | PDOC DISCHARGE SUMMARY ---
General - Admit/Disc Date/PCP Admission Date/Primary Care Provider: 10/28/16 08:10 Discharge Date: 10/30/16 - Discharge Diagnosis (1) Overdose Is this a current diagnosis for this admission?: Yes (2) Altered mental status Is this a current diagnosis for this admission?: Yes (3) COPD (chronic obstructive pulmonary disease) Is this a current diagnosis for this admission?: Yes (4) Anemia Is this a current diagnosis for this admission?: Yes (5) GERD (gastroesophageal reflux disease) Is this a current diagnosis for this admission?: Yes (6) Bipolar disorder (manic depression) Is this a current diagnosis for this admission?: Yes - Additional Information Resuscitation Status: Full Code Discharge Diet: Regular Discharge Activity: Activity As Tolerated, Supervised Activity Home Medications: Fluoxetine HCl [Prozac] 40 mg PO BID 10/28/16 Omeprazole Magnesium [Prilosec Otc] 40 mg PO DAILY 10/28/16 Divalproex Sodium [Depakote ER 500 mg Tab.sr] 500 mg PO TID #90 tab.sr.24h 10/30 Gabapentin 400 mg PO TID #0 10/30/16 Ziprasidone HCl [Geodon 40 mg Capsule] 40 mg PO QHS #30 capsule 10/30/16 History of Present Illness History of Present Illness: History is obtained from ED provider as patient is unable to participate in exam and is unaccomapanied at the time I see her. BRII STONE is a 55 year old female who presents to the emergency department today with complaints of a possible seizure. EMS states on arrival they were told that the patient took 2 Adderall prior to their arrival which she has never taken in the past. EMS states that the patient was with men who gave the history. 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 EMS states the patient initially complained of feeling dizzy and had difficulty ambulating secondary to muscle spasms. Patient has a history of cocaine and prescription drug abuse. Significant other has now arrived at the bedside and reports additional history. He states that today the patient had what he can best describe as muscle spasms. He states that during this episode she was still able to talk to him. He does mention that she has a history of recreational drug usage in the past including opiate pain medication and crack. He states that to his knowledge , the patient did not use any recreational drugs today and he states he is not aware of whether or not the patient took adderall. Pt underwent CT of the head and LP both of which were unremarkable. Patient is referred to the hospitalist service for overdose of unknown intent. Hospital Course Hospital Course: Patient was admitted and placed on IMCU. Patient was monitored on telemetry. Based on patient's presentation, with her prolonged QT, twitching, somnolence, mydriasis it was felt the patient had an overdose of Seroquel. Patient also had pills missing from her bottle. Patient admitted to Adderall use which confounded and worsened this picture. Patient was treated conservatively with a small amount of benzodiazepines. Patient responded aroused at the end of the first day and became increasingly agitated. Repeat EKG revealed resolution of her QT prolongation and patient was administered Geodon with good effect. Patient was started on Depakote, Geodon, and continued on her home Prozac. Patient's acute encephalopathy improved as did her acute kristie. Patient reported to me that she had no intention of killing herself. Patient denies any SI or HI. According to family, patient has a long history of substance abuse. Patient was seen by psychology and felt to not meet criteria for inpatient admission. Patient was rescinded and discharged in stable condition. Patient was strongly advised to not take medications that are not prescribed to her and to follow-up for substance abuse treatment. Physical Exam Vital Signs: Temp Pulse Resp BP Pulse Ox 98.6 F 91 18 142/89 H 98 10/30/16 12:29 10/30/16 12:29 10/30/16 12:29 10/30/16 12:29 10/30/16 12:29 Intake & Output 10/30/16 10/31/16 11/01/16 06:59 06:59 06:59 Intake Total 3879 Output Total 3400 Balance 479 Weight 51.5 kg Exam: General: Awake alert and orientedx3, no acute respiratory distress HEENT: AT/NC, PERRL, EOMI, oropharynx is moist, pink, no scleral icterus, no conjunctival injection Neck: No JVD, trachea midline Chest: Clear to auscultation bilaterally, no wheezes rhonchi or rales CV: Regular rate and rhythm, normal S1 and S2, no murmur, rub, or gallop Abdomen: Soft, nontender to palpation, nondistended, active bowel sounds; no rebound, rigidity, or guarding Extremities: No cyanosis, clubbing or edema Neuro: Cranial nerves II through XII are grossly intact without focal deficits; awake alert and orientedx3 Psych: Normal mood and affect, cluster B personality traits Results Laboratory Results: 10/30/16 05:04 10/30/16 05:04 10/28/16 11:30 Catheterized Urine Urine Culture - Final NO GROWTH 2 DAYS 10/28/16 10/28/16 10/28/16 08:40 08:40 14:09 Creatine Kinase 123 CK-MB (CK-2) 4.09 3.76 Troponin I < 0.012 < 0.012 10/28/16 10/29/16 20:20 07:18 Creatine Kinase 91 CK-MB (CK-2) 3.84 Troponin I < 0.012 Impressions: Head CT 10/27/16 00:00 IMPRESSION: No hemorrhage. No midline shift. Areas of low density in the white matter most likely due to chronic micro-vascular ischemic change. Chest X-Ray 10/29/16 06:00 IMPRESSION: No acute findings. Chronic appearing increased interstitial markings with lung parenchymal deven on the left. Qualifiers PATEINT BEING DISCHARGED WITH ANY OF THE FOLLOWING DIAGNOSIS?: No Plan Time Spent: Less than 30 Minutes
== END 2016-10-30 13:00 | disposition home or self-care (01) | DRG 917 ==
LOC: ER 19:43 → EH 10-28 08:10 → 3S 10-28 10:04
PROVIDERS: ADMIT Family Medicine; ATTEND Family Medicine
PROC: 009U3ZX Drainage of Spinal Canal, Percutaneous Approach, Diagnostic (ICD-10-PCS; principal; 2016-10-28)
PROC: 3E0F73Z Introduction of Anti-inflammatory into Respiratory Tract, Via Natural or Artificial Opening (ICD-10-PCS; 2016-10-28)
DX: T43.591A Poisoning by other antipsychotics and neuroleptics, accidental (unintentional), initial encounter (principal); G93.40 Encephalopathy, unspecified; G40.909 Epilepsy, unspecified, not intractable, without status epilepticus; F31.9 Bipolar disorder, unspecified; F13.10 Sedative, hypnotic or anxiolytic abuse, uncomplicated; F14.10 Cocaine abuse, uncomplicated; J43.9 Emphysema, unspecified; F17.210 Nicotine dependence, cigarettes, uncomplicated; D64.9 Anemia, unspecified; K21.9 Gastro-esophageal reflux disease without esophagitis; Z68.20 Body mass index [BMI] 20.0-20.9, adult; R63.6 Underweight; Z88.0 Allergy status to penicillin; Z88.8 Allergy status to other drugs, medicaments and biological substances; Y92.9 Unspecified place or not applicable
CPT/HCPCS: 36415; 70450; 71010; 71020; 80053; 80307; 81001; 81025; 82550; 82553; 82803; 82945; 83605; 83735; 84100; 84134; 84157; 84443; 84484; 85025; 85610; 85730; 87040; 87070; 87086; 87205; 89050; 93005; 93010; 96365; 96375; 99291; 99292; J0692; J1650; J2060; J2310; J3475; J3486; J7030; S0028

== ENCOUNTER 2016-11-14 03:18 | Emergency (ER) | payer MEDICAID ==
[2016-11-14 04:49] LABS: ABSOLUTE BASOPHILS # (AUTO) 0.1 10^3/uL (0.0-0.2); ABSOLUTE EOSINOPHILS # (AUTO) 0.2 10^3/uL (0.0-0.6); ABSOLUTE MONOCYTES (AUTO) 0.8 10^3/uL (0.1-1.4); ABSOLUTE NEUT (AUTO) 4.9 10^3/uL (1.7-8.2); EOSINOPHILS % (AUTO) 1.7 % (0-6); HEMATOCRIT 36.6 % (36.0-47.0); HEMOGLOBIN 12.2 g/dL (12.0-15.5); LYMPHOCYTES % (AUTO) 33.9 % (13-45); MEAN CORPUSCULAR HEMOGLOBIN 28.4 pg (27.0-33.4); MEAN CORPUSCULAR HGB CONC 33.2 g/dL (32.0-36.0); MEAN CORPUSCULAR VOLUME 86 fl (80-97); MONOCYTES % (AUTO) 8.9 % (3-13); RED BLOOD COUNT 4.27 10^6/uL (3.72-5.28); RED CELL DISTRIBUTION WIDTH 21.1 % (11.5-14.0); SEGMENTED NEUTROPHILS % (AUTO) 54.5 % (42-78)
--- NOTE | 2016-11-14 04:50 | ER Document Report ---
ED Fall - General Chief Complaint: Fall Stated Complaint: FALL,HEAD,BACK PAIN Mode of Arrival: Medic Information source: Patient Notes: Patient is a 55-year-old female with COPD, seizure disorder, who presents to the ER today for multiple reasons. Patient apparently had a "mini seizure" on her stepstool 2 days ago and fell, hitting her head on the tile. Patient states that she remembers hitting her head. She denies any nausea, vomiting but does admit to headache and blurred vision since that time. is in the room and states that she has been acting normally since that time. Patient also complains of cough 3 days. Patient has a history of a partial lung resection of the left lung in January of last year, pneumonia multiple times this year, and is concerned that she has pneumonia again. Patient admits to productive cough. She is taking her nebulizer solution as prescribed and states that it is helping with shortness of breath. She is no longer on oxygen at home which she used to be on all the time. She denies any fevers or chills. She denies chest pain. TRAVEL OUTSIDE OF THE [place]S. IN LAST 30 DAYS: No - Related data Allergies/Adverse Reactions: ketorolac [From Toradol] Allergy (Verified 10/01/16 07:53) Penicillins Allergy (Verified 10/01/16 07:53) tramadol Allergy (Verified 10/01/16 07:53) Past Medical History - General Information source: Patient - Social History Smoking Status: Unknown if Ever Smoked Family History: Reviewed & Not Pertinent Patient has suicidal ideation: No Patient has homicidal ideation: No Pulmonary Medical History: Reports: Hx COPD Renal/ Medical History: Denies: Hx Peritoneal Dialysis GI Medical History: Reports: Hx Gastroesophageal Reflux Disease Psychiatric Medical History: Reports: Hx Anxiety Past Surgical History: Reports: Hx Hysterectomy, Hx Orthopedic Surgery - knee - Immunizations Hx Diphtheria, Pertussis, Tetanus Vaccination: Yes Review of Systems - Review of Systems Constitutional: No symptoms reported EENT: No symptoms reported Cardiovascular: No symptoms reported Respiratory: See HPI Gastrointestinal: No symptoms reported Genitourinary: No symptoms reported Female Genitourinary: No symptoms reported Musculoskeletal: No symptoms reported Skin: No symptoms reported Hematologic/Lymphatic: No symptoms reported Neurological/Psychological: See HPI Physical Exam - Vital signs Vitals: Temp Pulse Resp BP Pulse Ox 97.7 F 84 26 H 166/86 H 96 11/14/16 03:24 11/14/16 03:24 11/14/16 03:24 11/14/16 03:24 11/14/16 03:24 - Notes Notes: PHYSICAL EXAMINATION: GENERAL: Chronically ill-appearing, in no acute distress. HEAD: Atraumatic, normocephalic. EYES: Pupils equal round and reactive to light, extraocular movements intact, sclera anicteric, conjunctiva are normal. ENT: ear canals without erythema or foreign body, TMs pearly winkler with good bony landmarks, nares patent, oropharynx clear without exudates. Moist mucous membranes. Airway patent NECK: Normal range of motion, supple without lymphadenopathy LUNGS: Cough, otherwise CTAB and equal. No wheezes rales or rhonchi. HEART: Regular rate and rhythm without murmurs ABDOMEN: Soft, no tenderness. No guarding, no rebound BACK: no vertebral tenderness, normal ROM GI/: no CVA tenderness EXTREMITIES: Normal range of motion, no pitting edema. No cyanosis. NEUROLOGICAL: Cranial nerves grossly intact. Normal sensory/motor exams. PSYCH: Normal mood, normal affect. SKIN: Warm, Dry, normal turgor, no rashes or lesions noted Course - Re-evaluation Re-evalutation: 11/14/16 06:46 Labwork is unremarkable today with a normal white blood cell count, chest x-ray reveals no acute pathology. Patient states that she does not need breathing treatments here she is not short of breath. Her vital signs are stable, she is not febrile and has good oxygen saturation on room air, 96%. - Vital Signs Vital signs: Temp Pulse Resp BP Pulse Ox 97.7 F 84 24 H 166/86 H 96 11/14/16 03:24 11/14/16 03:24 11/14/16 05:46 11/14/16 03:24 11/14/16 03:24 - Laboratory Result Diagrams: 11/14/16 04:40 11/14/16 04:40 Laboratory results interpreted by me: 11/14/16 11/14/16 04:40 04:40 RDW 21.1 H Plt Count 465 H Sodium 134.1 L Chloride 94 L Direct Bilirubin 0.6 H AST 58 H Total Protein 9.4 H Discharge - Discharge Clinical Impression: COPD (chronic obstructive pulmonary disease) Qualifiers: COPD type: unspecified COPD Qualified Code(s): J44.9 - Chronic obstructive pulmonary disease, unspecified Condition: Stable Disposition: HOME, SELF-CARE Additional Instructions: Return immediately for any new or worsening symptoms. Follow up with primary care provider, call tomorrow to make followup appointment. Prescriptions: Azithromycin [Zithromax 250 mg Tablet] 250 mg PO ASDIR PRN #6 tablet PRN Reason: D-Methorphan Hb/Prometh HCl [Promethazine-Dm Syrup] 5 ml PO Q8 PRN #120 ml PRN Reason:
[2016-11-14 05:01] LABS: ALANINE AMINOTRANSFERASE 35 U/L (9-52); ALBUMIN 4.4 g/dL (3.5-5.0); ALKALINE PHOSPHATASE 98 U/L (38-126); ANION GAP 15 (5-19); ASPARTATE AMINO TRANSFERASE 58 U/L (14-36); BILIRUBIN,DIRECT 0.6 mg/dL (0.0-0.4); BILIRUBIN,TOTAL 0.6 mg/dL (0.2-1.3); BLOOD UREA NITROGEN 13 mg/dL (7-20); CALCIUM 9.3 mg/dL (8.4-10.2); CARBON DIOXIDE 25 mmol/L (22-30); CHLORIDE 94 mmol/L (98-107); CREATININE RESULT 0.71 mg/dL (0.52-1.25); GLUCOSE 81 mg/dL (75-110); POTASSIUM 4.8 mmol/L (3.6-5.0); SODIUM 134.1 mmol/L (137-145); TOTAL PROTEIN 9.4 g/dL (6.3-8.2)
[2016-11-14] MEDS ORDERED: GUAIFENESIN/D-METHORPHAN (200-20 MG) SYRUP 10 ML PO ONE (05:45)
--- NOTE | 2016-11-14 05:59 | RADIOLOGY REPORT (SQ) ---
EXAM DESCRIPTION: CT HEAD WITHOUT COMPLETED DATE/TIME: 11/14/2016 5:18 am REASON FOR STUDY: fall, syncope, blurred vision COMPARISON: 10/27/2016. TECHNIQUE: Axial images acquired through the brain without intravenous contrast. Images reviewed wi th bone, brain and subdural windows. Images stored on PACS. All CT scanners at this facility use dose modulation, iterative reconstruction, and/or weight based d osing when appropriate to reduce radiation dose to as low as reasonably achievable (ALARA). [facility]: Dose Right [facility]: CareDose [facility]: Dose Right [facility]: Teradose 4D [facility]: Toywheel RADIATION DOSE: Up-to-date CT equipment and radiation dose reduction techniques were employed. CTDIv ol: 64.6 - 67.0 mGy. DLP: 2216 mGy-cm. mGy. LIMITATIONS: None. FINDINGS: VENTRICLES: Normal size and contour. CEREBRUM: No masses. No hemorrhage. No midline shift. No evidence for acute infarction. Normal gra y/white matter differentiation. [id number] cerebral volume loss. Moderate white matter microa ngiopathy. No significant interval change. On the CEREBELLUM: No masses. No hemorrhage. No alteration of density. No evidence for acute infarction. EXTRAAXIAL SPACES: No fluid collections. No masses. ORBITS AND GLOBE: No intra- or extraconal masses. Normal contour of globe without masses. CALVARIUM: No fracture. The PARANASAL SINUSES: No fluid or mucosal thickening. SOFT TISSUES: No mass or hematoma. OTHER: No other significant finding. IMPRESSION: No acute findings. COMMENT: Quality ID # [id number]: Final reports with documentation of one or more dose reduction techniques (e.g., Automated exposure control, adjustment of the mA and/or kV according to patient size, use of iterative reconstruction technique) TECHNICAL DOCUMENTATION: JOB ID: [id number] [employer]- All Rights Reserved
--- NOTE | 2016-11-14 06:03 | RADIOLOGY REPORT (SQ) ---
EXAM DESCRIPTION: CHEST PA/LAT COMPLETED DATE/TIME: 11/14/2016 5:16 am REASON FOR STUDY: CHEST TIGHTNESS COMPARISON: 10/27/2016. EXAM PARAMETERS: NUMBER OF VIEWS: two views TECHNIQUE: Digital Frontal and Lateral radiographic views of the chest acquired. RADIATION DOSE: NA LIMITATIONS: none FINDINGS: LUNGS AND PLEURA: Moderate interstitial markings. Small atelectasis or scar bilateral low er lobes. MEDIASTINUM AND HILAR STRUCTURES: No masses or contour abnormalities. HEART AND VASCULAR STRUCTURES: Heart normal size. No evidence for failure. BONES: No acute findings. HARDWARE: None in the chest. OTHER: No other significant finding. IMPRESSION: Moderate chronic interstitial lung disease pattern and/or pulmonary fibrosis. TECHNICAL DOCUMENTATION: JOB ID: [id number] [employer]- All Rights Reserved
[2016-11-14 06:24] LABS: APPEARANCE,URINE CLEAR; BILIRUBIN,URINE NEGATIVE (NEGATIVE); GLUCOSE, URINE NEGATIVE (NEGATIVE); KETONES,URINE NEGATIVE (NEGATIVE); LEUKOCYTE ESTERASE,URINE NEGATIVE (NEGATIVE); NITRITE,URINE NEGATIVE (NEGATIVE); PROTEIN,URINE NEGATIVE (NEGATIVE); URINE SPECIFIC GRAVITY 1.009; UROBILINOGEN,URINE NEGATIVE mg/dL (<2.0)
[2016-11-14 07:05] VITALS: BP 155/95
== END 2016-11-14 07:35 | disposition home or self-care (01) ==
LOC: ER 03:18
DX: J44.9 Chronic obstructive pulmonary disease, unspecified (principal); R51 Headache; H53.8 Other visual disturbances; Z88.0 Allergy status to penicillin; Z88.6 Allergy status to analgesic agent; Z90.710 Acquired absence of both cervix and uterus
CPT/HCPCS: 99284; 36415; 85025; 80053; 81001; 71020; 70450; J3490

== ENCOUNTER 2016-11-26 02:15 | Emergency (ER) | payer MEDICAID ==
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
[2016-11-26] MEDS ORDERED: DOXYCYCLINE HYCLATE 100 MG TABLET PO ONE (03:09)
[2016-11-26] MEDS ORDERED: LEVOFLOXACIN 750 MG/D5W RTU 750 MG/150 ML RTUPB IV ONE (03:09)
[2016-11-26] MEDS ORDERED: OXYCODONE-ACETAMINOPHEN 5-325 MG TABLET PO ONE (03:10)
[2016-11-26] MEDS ORDERED: DIPH/PERTUSS(ACELL)/TETANUS VAC/PF 0.5 ML SYR (>=10YO) IM ONE (03:12)
[2016-11-26 03:15] LABS: ALANINE AMINOTRANSFERASE 43 U/L (9-52); ALBUMIN 3.4 g/dL (3.5-5.0); ALKALINE PHOSPHATASE 80 U/L (38-126); ANION GAP 10 (5-19); ASPARTATE AMINO TRANSFERASE 62 U/L (14-36); BILIRUBIN,DIRECT 0.4 mg/dL (0.0-0.4); BILIRUBIN,TOTAL 0.4 mg/dL (0.2-1.3); BLOOD UREA NITROGEN 16 mg/dL (7-20); CALCIUM 8.6 mg/dL (8.4-10.2); CARBON DIOXIDE 27 mmol/L (22-30); CHLORIDE 98 mmol/L (98-107); CREATININE RESULT 0.85 mg/dL (0.52-1.25); GLUCOSE 83 mg/dL (75-110); MAGNESIUM 1.4 mg/dL (1.6-2.3); POTASSIUM 3.9 mmol/L (3.6-5.0); SODIUM 135.3 mmol/L (137-145); TOTAL PROTEIN 7.4 g/dL (6.3-8.2)
[2016-11-26 03:23] LABS: ABSOLUTE EOSINOPHILS # (AUTO) 0.1 10^3/uL (0.0-0.6); ABSOLUTE LYMPHOCYTES (AUTO) 1.8 10^3/uL (0.5-4.7); ABSOLUTE MONOCYTES (AUTO) 1.1 10^3/uL (0.1-1.4); BASOPHILS % (AUTO) 0.7 % (0-2); EOSINOPHILS % (AUTO) 1.4 % (0-6); HEMATOCRIT 30.5 % (36.0-47.0); HEMOGLOBIN 10.1 g/dL (12.0-15.5); HGB HCT DIFFERENCE -0.2; LYMPHOCYTES % (AUTO) 30.1 % (13-45); MEAN CORPUSCULAR HGB CONC 32.9 g/dL (32.0-36.0); MEAN CORPUSCULAR VOLUME 88 fl (80-97); MONOCYTES % (AUTO) 18.2 % (3-13); RED BLOOD COUNT 3.48 10^6/uL (3.72-5.28); RED CELL DISTRIBUTION WIDTH 22.6 % (11.5-14.0); SEGMENTED NEUTROPHILS % (AUTO) 49.6 % (42-78); WHITE BLOOD COUNT 6.1 10^3/uL (4.0-10.5)
[2016-11-26] MEDS ORDERED: HYDROCODONE/ACETAMINOPHEN 5-325 MG 6 TAB/DSPK PO PRN (04:11)
[2016-11-26 04:24] LABS: APPEARANCE,URINE SLIGHTLY-CLOUDY; BILIRUBIN,URINE NEGATIVE (NEGATIVE); GLUCOSE, URINE NEGATIVE (NEGATIVE); KETONES,URINE NEGATIVE (NEGATIVE); LEUKOCYTE ESTERASE,URINE TRACE (NEGATIVE); NITRITE,URINE NEGATIVE (NEGATIVE); PROTEIN,URINE NEGATIVE (NEGATIVE); URINE SPECIFIC GRAVITY 1.015
[2016-11-26 04:26] VITALS: BP 108/75
[2016-11-26 04:28] LABS: URINE BARBITURATES SCREEN NEGATIVE; URINE METHADONE SCREEN NEGATIVE; URINE OPIATES LOW UNCONFIRMED POSITIVE; URINE PHENCYCLIDINE SCREEN NEGATIVE
== END 2016-11-26 04:45 | disposition home or self-care (01) ==
LOC: ER 02:15
DX: L03.116 Cellulitis of left lower limb (principal); F17.210 Nicotine dependence, cigarettes, uncomplicated; Z88.0 Allergy status to penicillin; Z88.6 Allergy status to analgesic agent; Z23 Encounter for immunization
CPT/HCPCS: 99284; 90471; 96365; 36415; 87040; 83735; 85025; 80053; 81001; 80307; 83605; 90715; J3490; J1956

== ENCOUNTER 2018-05-29 09:12 | Emergency (ER) | payer MEDICAID ==
--- NOTE | 2018-05-29 10:46 | RADIOLOGY REPORT (SQ) ---
EXAM DESCRIPTION: KNEE LEFT 2 VIEWS COMPLETED DATE/TIME: 05/29/2018 10:39 am REASON FOR STUDY: fall 9 days ago.. pain.. you can combo films COMPARISON: None. NUMBER OF VIEWS: Two views. TECHNIQUE: AP and lateral radiographic images acquired of the left knee. LIMITATIONS: None. FINDINGS: MINERALIZATION: Normal. BONES: No acute fracture or dislocation. No worrisome bone lesions. JOINT: Small joint effusion. SOFT TISSUES: No soft tissue swelling. No radio-opaque foreign body. OTHER: No other significant finding. IMPRESSION: No fracture or dislocation of the left knee. Joint spaces are well preserved. There is a small nonspecific knee joint effusion. TECHNICAL DOCUMENTATION: JOB ID: [id number] [employer]- All Rights Reserved Reading location - IP/workstation name: [email or web address]
--- NOTE | 2018-05-29 10:47 | RADIOLOGY REPORT (SQ) ---
EXAM DESCRIPTION: CT PELVIS WITHOUT COMPLETED DATE/TIME: 05/29/2018 10:36 am REASON FOR STUDY: hip fracture fell 9 days ago, left hip and buttock pain COMPARISON: None. TECHNIQUE: CT scan of the pelvis performed without intravenous or oral contrast. Images reviewed wi th soft tissue and bone windows. Reconstructed coronal and sagittal MPR images reviewed. All images stored on PACS. Additional shaded surface display images were generated on an independent workstation, saved to pac's . All CT scanners at this facility use dose modulation, iterative reconstruction, and/or weight based d osing when appropriate to reduce radiation dose to as low as reasonably achievable (ALARA). [facility]: Dose Right [facility]: CareDose [facility]: Dose Right [facility]: Teradose 4D [facility]: [employer] RADIATION DOSE: CT Rad equipment meets quality standard of care and radiation dose reduction techniq ues were employed. CTDIvol: 10.3 mGy. DLP: 309 mGy-cm. mGy. LIMITATIONS: None. FINDINGS: Bones are osteopenic. Acute nondisplaced nonangulated left sacral ala fracture, best shown on shaded surface display series 3 images 1-4. Acute nondisplaced nonangulated left superior pubic ramus fracture without definite extension into th e anterior edge left acetabulum. This is best shown on coronal reconstruction series 301, image 27-3 0. Acute nondisplaced nonangulated left inferior pubic ramus fracture, best shown on axial series 2, garrick ge 82-84. Left hip joint is intact. Left proximal femur is intact. Remainder of the bony pelvis is otherwise unremarkable. Mild lower lumbar facet arthropathy and disc space loss of height at L5-S1. Pelvic soft tissues are unremarkable other than post hysterectomy change IMPRESSION: Acute nondisplaced nonangulated left sacral ala fracture, left superior pubic ramus frac ture, left inferior pubic ramus fracture. TECHNICAL DOCUMENTATION: JOB ID: [id number] Quality ID # [id number]: Final reports with documentation of one or more dose reduction techniques (e.g., Au tomated exposure control, adjustment of the mA and/or kV according to patient size, use of iterative reconstruction technique) 2010 [employer]- All Rights Reserved Reading location - IP/workstation name: [email or web address]
--- NOTE | 2018-05-29 11:22 | RADIOLOGY REPORT (SQ) ---
EXAM DESCRIPTION: HIP LEFT AP/LATERAL COMPLETED DATE/TIME: 05/29/2018 10:30 am REASON FOR STUDY: fall 9 days ago.. pain.. you can combo films COMPARISON: None. NUMBER OF VIEWS: Two views. TECHNIQUE: AP pelvis and additional frog-leg view of the left hip. LIMITATIONS: None. FINDINGS: MINERALIZATION: Normal. LEFT HIP: There is a fracture of the proximal superior pubic ramus. No other fractures appreciated a t this time RIGHT HIP: No fracture or dislocation. No worrisome bone lesions. PUBIS AND ISCHIUM: No fracture. PELVIS: No fracture. SACRUM: No fracture or dislocation. No worrisome bone lesions. LOWER LUMBAR SPINE: No fracture or dislocation. No worrisome bone lesions. No significant disc disea se. SOFT TISSUES: No findings. OTHER: No other significant finding. IMPRESSION: Fracture of the superior pubic ramus on the left. TECHNICAL DOCUMENTATION: JOB ID: [id number] [employer]- All Rights Reserved Reading location - IP/workstation name: [email or web address]
[2018-05-29] MEDS ORDERED: HYDROCODONE/ACETAMINOPHEN 5-325 MG TABLET PO ONE (13:47)
--- NOTE | 2018-05-29 13:50 | ER Document Report ---
ED General - General Chief Complaint: Hip Pain Stated Complaint: FALL/LEFT SIDE PAIN Time Seen by Provider: 05/29/18 09:54 TRAVEL OUTSIDE OF THE [place] IN LAST 30 DAYS: No - HPI Patient complains to provider of: Left hip pain Notes: Patient coming in with left hip pain pelvic pain after a fall 9 days ago. Patient is on methadone states that she fell on her buttocks and has been using a cane to ambulate. Patient states pain in the inguinal region and in her buttocks. Patient denies any other injuries denies any loss of consciousness patient also does complain of the left knee pain. Otherwise patient resting comfortably upon my evaluation - Related Data Allergies/Adverse Reactions: Penicillins Allergy (Verified 11/26/16 02:55) Past Medical History - Social History Smoking Status: Former Smoker Chew tobacco use (# tins/day): No Frequency of alcohol use: Rare Drug Abuse: Marijuana Family History: None Patient has suicidal ideation: No Patient has homicidal ideation: No Pulmonary Medical History: Reports: Hx COPD Renal/ Medical History: Denies: Hx Peritoneal Dialysis GI Medical History: Reports: Hx Gastroesophageal Reflux Disease Psychiatric Medical History: Reports: Hx Anxiety, Hx Bipolar Disorder Past Surgical History: Reports: Hx Hysterectomy, Hx Orthopedic Surgery - knee - Immunizations Hx Diphtheria, Pertussis, Tetanus Vaccination: Yes Review of Systems - Review of Systems Constitutional: No symptoms reported EENT: No symptoms reported Cardiovascular: No symptoms reported Respiratory: No symptoms reported Gastrointestinal: No symptoms reported Genitourinary: No symptoms reported Female Genitourinary: No symptoms reported Musculoskeletal: Other - Hip pain Skin: No symptoms reported Hematologic/Lymphatic: No symptoms reported Neurological/Psychological: No symptoms reported Physical Exam - Vital signs Vitals: Temp Pulse Resp BP Pulse Ox 97.8 F 67 16 132/81 H 100 05/29/18 09:24 05/29/18 09:24 05/29/18 09:24 05/29/18 09:24 05/29/18 09:24 Interpretation: Normal - General General appearance: Appears well, Alert - HEENT Head: Normocephalic, Atraumatic Eyes: Normal Pupils: PERRL - Respiratory Respiratory status: No respiratory distress Chest status: Nontender Breath sounds: Normal Chest palpation: Normal - Cardiovascular Rhythm: Regular Heart sounds: Normal auscultation Murmur: No - Abdominal Inspection: Normal Distension: No distension Bowel sounds: Normal Tenderness: Nontender Organomegaly: No organomegaly - Back Back: Normal, Nontender - Extremities General upper extremity: Normal inspection, Nontender, Normal color, Normal ROM, Normal temperature General lower extremity: Normal inspection, Nontender, Normal color, Normal ROM, Normal temperature, Other - Patient with a limping gait patient has tenderness palpation of the left greater trochanter palpation of the left knee also reveals tenderness. - Neurological Neuro grossly intact: Yes Cognition: Normal Orientation: AAOx4 [place] Coma Scale Eye Opening: Spontaneous [place] Coma Scale Verbal: Oriented [place] Coma Scale Motor: Obeys Commands Los Coma Scale Total: 15 Speech: Normal Motor strength normal: LUE, RUE, LLE, RLE Sensory: Normal - Psychological Associated symptoms: Normal affect, Normal mood - Skin Skin Temperature: Warm Skin Moisture: Dry Skin Color: Normal Course - Re-evaluation Re-evalutation: 05/29/18 14:40 Patient with sacral fracture and inferior and superior pelvic rami fracture. Patient will be discharged home with hydrocodone. I did contact the patient's methadone clinic they do agree with this pain management regimen at this time. I did inform the patient that she was instructed by the methadone clinic to take her bottle of hydrocodone with her patient states that she had already been contacted by the clinic and agrees with this plan to follow-up with her PCP for referral to orthopedics - Vital Signs Vital signs: Temp Pulse Resp BP Pulse Ox 97.6 F 62 16 166/87 H 100 05/29/18 14:17 05/29/18 14:17 05/29/18 14:17 05/29/18 14:17 05/29/18 14:17 Discharge - Discharge Clinical Impression: Sacral ala fracture left Fracture of superior pubic ramus Qualifiers: Encounter type: initial encounter Fracture type: closed Laterality: left Qualified Code(s): S32.512A - Fracture of superior rim of left pubis, initial encounter for closed fracture Inferior pubic ramus fracture Qualifiers: Encounter type: initial encounter Fracture type: closed Laterality: left Qualified Code(s): S32.592A - Other specified fracture of left pubis, initial encounter for closed fracture Condition: Good Disposition: HOME, SELF-CARE Instructions: Use of Crutches ([facility]), Pelvic Fracture ([facility]) Additional Instructions: I discussed your pain management with your methadone clinic we will start you on hydrocodone it is important that you take your bottle of hydrocodone with you to the methadone clinic. sHe may follow-up with the orthopedic doctors provided. Prescriptions: Hydrocodone Bit/Acetaminophen [Hydrocodon-Acetaminophen 5-325] 1 each PO Q6 PRN #19 tablet PRN Reason: For Pain
[2018-05-29 14:19] VITALS: BP 166/87
== END 2018-05-29 14:21 | disposition home or self-care (01) ==
LOC: ER 09:12
DX: S32.110A Nondisplaced Zone I fracture of sacrum, initial encounter for closed fracture (principal); S32.512A Fracture of superior rim of left pubis, initial encounter for closed fracture; S32.592A Other specified fracture of left pubis, initial encounter for closed fracture; M25.552 Pain in left hip; R10.2 Pelvic and perineal pain; M25.562 Pain in left knee; W01.0XXA Fall on same level from slipping, tripping and stumbling without subsequent striking against object, initial encounter; J44.9 Chronic obstructive pulmonary disease, unspecified; F12.10 Cannabis abuse, uncomplicated; Z88.0 Allergy status to penicillin; Z87.891 Personal history of nicotine dependence
CPT/HCPCS: 72192; 99284

== ENCOUNTER 2018-07-09 17:10 | Emergency (ER) | payer MEDICAID ==
--- NOTE | 2018-07-09 18:08 | RADIOLOGY REPORT (SQ) ---
EXAM DESCRIPTION: CHEST 2 VIEWS COMPLETED DATE/TIME: 07/09/2018 5:59 pm REASON FOR STUDY: fall on right side COMPARISON: 11/14/2016 EXAM PARAMETERS: NUMBER OF VIEWS: two views TECHNIQUE: Digital Frontal and Lateral radiographic views of the chest acquired. RADIATION DOSE: NA LIMITATIONS: none FINDINGS: LUNGS AND PLEURA: Stable prominent interstitial lung markings as well as scarring in the l eft lung base. No pneumothorax. MEDIASTINUM AND HILAR STRUCTURES: No masses or contour abnormalities. HEART AND VASCULAR STRUCTURES: The heart is normal in size. The pulmonary artery appears quite promi nent. BONES: No acute findings. HARDWARE: None in the chest. OTHER: No other significant finding. IMPRESSION: 1. No evidence of acute injury 2. Chronic chronic stable lung findings. This may represent interstitial lung disease or marked DINKER D changes. Recommend clinical correlation. 3. Prominent appearing pulmonary artery. This may be due to the obliquity of the image, however pul monary artery hypertension cannot be excluded. TECHNICAL DOCUMENTATION: JOB ID: [id number] [email or web address]- All Rights Reserved Reading location - IP/workstation name: [email or web address]
[2018-07-09] MEDS ORDERED: HYDROCODONE/ACETAMINOPHEN 5-325 MG TABLET PO ONE (18:57)
--- NOTE | 2018-07-09 18:59 | ER Document Report ---
ED Medical Screen (RME) - General Chief Complaint: Rib Pain Stated Complaint: FALL/DIFFICULTY BREATHING Time Seen by Provider: 07/09/18 18:55 Mode of Arrival: Wheelchair Information source: Patient Notes: Patient reports falling 2 days ago landing on her right side hitting a table. Patient denies any head injury or loss of consciousness. Patient does complain of some nausea with vomiting today. Patient hysterically moaning. No ecchymosis noted to right lateral side. I have greeted and performed a rapid initial assessment of this patient. A comprehensive ED assessment and evaluation of the patient, analysis of test results and completion of the medical decision making process will be conducted by additional ED providers. TRAVEL OUTSIDE OF THE [place] IN LAST 30 DAYS: No - Related Data Allergies/Adverse Reactions: Penicillins Allergy (Verified 11/26/16 02:55) Past Medical History Pulmonary Medical History: Reports: Hx COPD Renal/ Medical History: Denies: Hx Peritoneal Dialysis GI Medical History: Reports: Hx Gastroesophageal Reflux Disease Psychiatric Medical History: Reports: Hx Anxiety, Hx Bipolar Disorder Past Surgical History: Reports: Hx Hysterectomy, Hx Orthopedic Surgery - knee - Immunizations Hx Diphtheria, Pertussis, Tetanus Vaccination: Yes Physical Exam - Vital signs Vitals: Temp Pulse Resp Pulse Ox 97.9 F 99 20 100 07/09/18 17:16 07/09/18 17:16 07/09/18 17:16 07/09/18 17:16 - General General appearance: Alert, Anxious Notes: Patient moaning, holding right lateral side. Right lateral rib tenderness, no ecchymosis, no crepitus. Course - Vital Signs Vital signs: Temp Pulse Resp BP Pulse Ox 97.9 F 99 20 100 07/09/18 17:16 07/09/18 17:16 07/09/18 17:16 07/09/18 17:16
[2018-07-09 19:59] LABS: ABSOLUTE LYMPHOCYTES (AUTO) 1.4 10^3/uL (0.5-4.7); ABSOLUTE MONOCYTES (AUTO) 0.7 10^3/uL (0.1-1.4); BASOPHILS % (AUTO) 0.4 % (0-2); EOSINOPHILS % (AUTO) 0.4 % (0-6); HEMATOCRIT 35.6 % (36.0-47.0); HEMOGLOBIN 11.7 g/dL (12.0-15.5); MEAN CORPUSCULAR HEMOGLOBIN 31.1 pg (27.0-33.4); MEAN CORPUSCULAR HGB CONC 32.9 g/dL (32.0-36.0); MEAN CORPUSCULAR VOLUME 94 fl (80-97); MONOCYTES % (AUTO) 11.3 % (3-13); PLATELET COUNT 359 10^3/uL (150-450); RED BLOOD COUNT 3.78 10^6/uL (3.72-5.28); RED CELL DISTRIBUTION WIDTH 14.6 % (11.5-14.0); SEGMENTED NEUTROPHILS % (AUTO) 64.9 % (42-78); TOTAL CELLS COUNTED % (AUTO) 100 %; WHITE BLOOD COUNT 6.2 10^3/uL (4.0-10.5)
[2018-07-09 20:18] LABS: ALANINE AMINOTRANSFERASE 49 U/L (9-52); ALKALINE PHOSPHATASE 152 U/L (38-126); ANION GAP 14 (5-19); ASPARTATE AMINO TRANSFERASE 101 U/L (14-36); BILIRUBIN,DIRECT 0.3 mg/dL (0.0-0.4); BILIRUBIN,TOTAL 0.4 mg/dL (0.2-1.3); BLOOD UREA NITROGEN 12 mg/dL (7-20); CALCIUM 9.3 mg/dL (8.4-10.2); CARBON DIOXIDE 27 mmol/L (22-30); CHLORIDE 101 mmol/L (98-107); GLUCOSE 91 mg/dL (75-110); POTASSIUM 4.2 mmol/L (3.6-5.0); SODIUM 141.7 mmol/L (137-145); TOTAL PROTEIN 8.2 g/dL (6.3-8.2)
--- NOTE | 2018-07-09 21:33 | RADIOLOGY REPORT (SQ) ---
EXAM DESCRIPTION: CT ABDOMEN PELVIS WITH IV CONTRAST, CT CHEST WITH IV CONTRAST COMPLETED DATE/TME: 07/09/2018 18:56 CLINICAL HISTORY: 57 years, Female, fall, rib/side pain COMPARISON: None. TECHNIQUE: Contrast enhanced CT of the chest, abdomen, and pelvis was performed. Coronal and sagittal reformations were created. Images stored on PACS. All CT scanners at this facility use dose modulation, iterative reconstruction, and/or weight based dosing when appropriate to reduce radiation dose to as low as reasonably achievable (ALARA). [facility]: Dose Right [facility]: CareDose [facility]: Dose Right [facility]: Teradose 4D [facility]: Smart DataProm LIMITATIONS: None. FINDINGS: Central airways are patent. Lung windows show severe upper zone predominant emphysematous change. An irregular solid nodule is noted about the left lower lobe superior segment near the major fissure measuring 0.8 x 0.7 cm in size on image 19 of series 4. An additional irregular nodular opacity is noted about the left upper lobe on image 21 of series 14. This appears bilobed, measuring up to 2.3 x 0.7 cm in size. In addition, there are postsurgical changes of left upper lobe wedge resection. Bands of opacity are evident about the periphery of the right upper lobe, likely indicating areas of atelectasis or scar. An additional 0.4 cm nodule is noted about the right upper lobe on image 19 of series 4. A few additional sub-6 mm nodules are noted about the right upper lobe. Mediastinal windows show no significant hilar or mediastinal lymph node enlargement. Calcifications are evident about the coronary vessels. The heart and great vessels otherwise appear normal. Bone windows through the chest reveal no destructive osseous lesions. However, there are fractures involving the right lateral seventh and eighth ribs. Mild superior endplate deformities involving the T8 and T9 vertebral bodies appear unchanged from the previous chest radiograph dated 10/27/2016, and are considered chronic. There is also mild superior endplate deformity involving the T5 vertebral body which also appears chronic. The liver, spleen, pancreas, gallbladder, and both adrenal glands appear normal. Both kidneys enhance symmetrically. There is no hydronephrosis or hydroureter. The urinary bladder is partially collapsed, thus its evaluation is limited. The small bowel appears overall normal in caliber without areas of focal wall thickening. Segments of large bowel appear distended, especially the ascending and transverse segments. This is nonspecific. The appendix is normal. Calcifications are evident about the abdominal aorta and proximal iliac vessels. No suspicious lymphadenopathy or drainable fluid collections are appreciated. Bone windows show osteopenia. In addition, there is focal disruption of the left surgical ala with associated sclerosis, corresponding to a healing fracture which was seen on the previous exam dated 05/29/2018. There is osteopenia. In addition, there is a separate healing fracture involving the left inferior pubic ramus. Additional callus formation is noted about the left anterior acetabulum, also corresponding to a healing fracture. IMPRESSION: Chest: Fractures involving the right lateral seventh and eighth ribs. Multiple pulmonary nodules. Most severe: 2.3 x 0.7 cm bilobed nodule within the left upper lobe. Correlation with prior imaging from other institutions would be of benefit to document stability of this finding. If no prior imaging is available, then follow-up CT chest in 3 months is recommended to document continued stability. Alternatively, this could be further assessed with PET/CT. At that time, the additional scattered pulmonary nodules can be reassessed. Abdomen/pelvis: Healing fractures involving the left sacral ala, left inferior pubic ramus, and left anterior acetabulum. Dilatation of the ascending and transverse segments of the colon, nonspecific. TECHNICAL DOCUMENTATION: Quality ID # [id number]: Final reports with documentation of one or more dose reduction techniques (e.g., Automated exposure control, adjustment of the mA and/or kV according to patient size, use of iterative reconstruction technique) copyright 2010 [employer]- All Rights Reserved
[2018-07-09] MEDS ORDERED: KETOROLAC TROMETHAMINE INJ/PF 30 MG/1 ML SDV IV ONE (23:46)
[2018-07-09] MEDS ORDERED: LIDOCAINE 5% (700 MG) TRANSDERMAL ADH..PATCH TP ONE (23:46)
[2018-07-09] MEDS ORDERED: OXYCODONE HCL IR 5 MG TABLET PO ONE (23:46)
[2018-07-09 23:47] LABS: APPEARANCE,URINE CLEAR; BILIRUBIN,URINE NEGATIVE (NEGATIVE); COLOR,URINE YELLOW; GLUCOSE, URINE NEGATIVE (NEGATIVE); KETONES,URINE NEGATIVE (NEGATIVE); LEUKOCYTE ESTERASE,URINE TRACE (NEGATIVE); NITRITE,URINE NEGATIVE (NEGATIVE); PROTEIN,URINE NEGATIVE (NEGATIVE); URINE SPECIFIC GRAVITY 1.058; UROBILINOGEN,URINE NEGATIVE mg/dL (<2.0)
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
[2018-07-10 00:35] VITALS: BP 141/96
== END 2018-07-10 00:33 | disposition home or self-care (01) ==
LOC: ER 17:10
DX: S22.41XA Multiple fractures of ribs, right side, initial encounter for closed fracture (principal); W50.0XXA Accidental hit or strike by another person, initial encounter; R91.8 Other nonspecific abnormal finding of lung field; Z88.0 Allergy status to penicillin; F17.200 Nicotine dependence, unspecified, uncomplicated
CPT/HCPCS: 99284; 36415; 85025; 80053; 81001; 71046; 71260; 74177; J3490 ×2

== ENCOUNTER 2018-07-24 06:20 | Emergency (ER) | payer MEDICAID ==
[2018-07-24 06:37] VITALS: BP 159/85
--- NOTE | 2018-07-24 09:19 | ER Document Report ---
Doctor's Note Notes: 07/24/18 09:00 Went to evaluate patient, patient has eloped from the emergency department. Patient told nurse that she got a hold of her primary care provider and is going to see them. I never laid eyes on or evaluated this patient.
== END 2018-07-24 08:59 | disposition left against medical advice (07) ==
LOC: ER 06:20
DX: S22.41XA Multiple fractures of ribs, right side, initial encounter for closed fracture (principal); R55 Syncope and collapse; R07.81 Pleurodynia; W19.XXXA Unspecified fall, initial encounter; Z91.81 History of falling; F17.210 Nicotine dependence, cigarettes, uncomplicated; J44.9 Chronic obstructive pulmonary disease, unspecified

== ENCOUNTER 2018-07-30 21:56 | Emergency (ER) | payer MEDICAID ==
--- NOTE | 2018-07-30 22:53 | RADIOLOGY REPORT (SQ) ---
EXAM DESCRIPTION: XR HIP 2 OR MORE VIEWS COMPLETED DATE/TME: 07/30/2018 22:09 CLINICAL HISTORY: 57 years, Female, pain/fall COMPARISON: 05/29/2018 pelvis NUMBER OF VIEWS: 2 TECHNIQUE: AP pelvis single view left hip LIMITATIONS: None. FINDINGS: Osteopenia. Old fracture deformity of the left inferior pubic ramus. Incomplete healing of the previously described fracture deformity of the left superior pubic ramus/bony acetabulum. Previously described fracture deformity of the left sacral ala shows partial sclerosis. No new or acute fractures. IMPRESSION: Old fracture deformities as above. No acute fracture or dislocation copyright 2010 [employer]- All Rights Reserved
--- NOTE | 2018-07-30 22:54 | RADIOLOGY REPORT (SQ) ---
EXAM DESCRIPTION: XR RIBS UNILATERAL WITH CHEST COMPLETED DATE/TME: 07/30/2018 00:00 CLINICAL HISTORY: 57 years, Female, previous rib fractures with pain COMPARISON: 07/09/2018 chest NUMBER OF VIEWS: 3 TECHNIQUE: Frontal view chest 2 views right ribs LIMITATIONS: None. FINDINGS: Heart size is normal. Mild atheromatous change thoracic aorta. Osteopenia. Chronic interstitial changes bilaterally with underlying fibrosis. No pneumothorax. Nondisplaced fractures of the lateral eighth and ninth ribs. There is also a partially healed fracture deformity of the lateral right fourth and fifth ribs. IMPRESSION: Acute nondisplaced lateral right eighth and ninth rib fractures with partially healed fractures of the right fourth and fifth ribs. Osteopenia. Chronic interstitial changes to the lungs bilaterally copyright 2010 [employer]- All Rights Reserved
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
[2018-07-31 01:02] LABS: HEMATOCRIT 37.9 % (36.0-47.0); HEMOGLOBIN 12.5 g/dL (12.0-15.5); MEAN CORPUSCULAR HEMOGLOBIN 31.2 pg (27.0-33.4); MEAN CORPUSCULAR HGB CONC 33.1 g/dL (32.0-36.0); MEAN CORPUSCULAR VOLUME 94 fl (80-97); PLATELET COUNT 502 10^3/uL (150-450); RED BLOOD COUNT 4.02 10^6/uL (3.72-5.28); RED CELL DISTRIBUTION WIDTH 15.2 % (11.5-14.0); WHITE BLOOD COUNT 7.1 10^3/uL (4.0-10.5)
[2018-07-31] MEDS ORDERED: OXYCODONE-ACETAMINOPHEN 5-325 MG TABLET PO ONE (01:09)
[2018-07-31] MEDS ORDERED: GABAPENTIN 300 MG CAPSULE PO ONE (01:10)
--- NOTE | 2018-07-31 01:13 | ER Document Report ---
ED General - General Chief Complaint: Syncope Stated Complaint: HIP PAIN Time Seen by Provider: 07/31/18 00:46 Primary Care Provider: [facility] [Provider Group] - Follow up as needed TRUE SHORE NP-C [NO LOCAL MD] - Follow up as needed Notes: 57-year-old female patient emergency department chief complaint of worsening rib pain. Patient states that she has been having a lot of falls recently. This is nothing new. Broke her pelvis and broke several ribs recently. Fell again and is now having pain in her ribs on the right side. Hurts to take a deep breath. No shortness of breath. Denies any other injuries at this time. States that she is only here for some pain medication so that she can "get some sleep tonight. Patient denies any chest pain or shortness of breath other than the rib pain. States that she would like information for pain management. TRAVEL OUTSIDE OF THE [place] IN LAST 30 DAYS: No - HPI Onset/Duration: Gradual, Constant - Related Data Allergies/Adverse Reactions: Penicillins Allergy (Verified 07/24/18 06:27) Past Medical History - General Information source: Patient - Social History Smoking Status: Current Some Day Smoker Cigarette use (# per day): Yes Frequency of alcohol use: None Drug Abuse: None Family History: Reviewed & Not Pertinent Patient has suicidal ideation: No Patient has homicidal ideation: No Pulmonary Medical History: Reports: Hx COPD Renal/ Medical History: Denies: Hx Peritoneal Dialysis GI Medical History: Reports: Hx Gastroesophageal Reflux Disease Psychiatric Medical History: Reports: Hx Anxiety, Hx Bipolar Disorder Past Surgical History: Reports: Hx Hysterectomy, Hx Orthopedic Surgery - knee - Immunizations Hx Diphtheria, Pertussis, Tetanus Vaccination: Yes Review of Systems - Review of Systems Notes: Constitutional: denies: Chills, Diaphoresis, Fever, Malaise, Weakness EENT: denies: Eye discharge, Blurred vision, Tearing, Double vision, Nose congestion, Nose discharge, Throat swelling, Mouth pain Cardiovascular: denies: Palpitations, Heart racing, Orthopnea, Dyspnea, Chest pain Respiratory: denies: Cough, Hurts to breathe, Wheezing, Shortness of breath Gastrointestinal: denies: Abdominal pain, Diarrhea, Nausea, Vomiting, Black stools, bright red blood in stool Genitourinary: denies: Burning, Dysuria, Discharge, Frequency, Flank pain, Hematuria Musculoskeletal:. Complaining of pain in her hips, back, chest wall. Hematologic/Lymphatic: denies: Anemia, Easy bleeding, Easy bruising, Blood clots Neurological/Psychological: denies: Confusion, Dementia, Depression, Loss of consciousness Skin: No lesions, no masses, no skin breakdown, no abscesses Physical Exam - Vital signs Vitals: Temp Pulse Resp BP Pulse Ox 98.4 F 82 20 171/100 H 100 07/30/18 22:42 07/30/18 22:42 07/30/18 22:42 07/30/18 22:42 07/30/18 22:42 Interpretation: Normal - General General appearance: Appears well, Alert - HEENT Head: Normocephalic, Atraumatic Eyes: Normal Pupils: PERRL - Respiratory Respiratory status: No respiratory distress Chest status: Nontender Breath sounds: Normal Chest palpation: Normal Notes: Patient has tenderness to palpation of the right lateral and posterior chest wall. There is no subcutaneous emphysema. - Cardiovascular Rhythm: Regular Heart sounds: Normal auscultation Murmur: No - Abdominal Inspection: Normal Distension: No distension Bowel sounds: Normal Tenderness: Nontender Organomegaly: No organomegaly - Back Back: Normal, Nontender - Extremities General upper extremity: Normal inspection, Nontender, Normal color, Normal ROM, Normal temperature General lower extremity: Normal inspection, Nontender, Normal color, Normal ROM, Normal temperature, Normal weight bearing. No: Mary's sign - Neurological Neuro grossly intact: Yes Cognition: Normal Orientation: AAOx4 [place] Com[place] Scale Eye Opening: Spontaneous Los Coma Scale Verbal: Oriented Los Coma Scale Motor: Obeys Commands Los Coma Scale Total: 15 Speech: Normal Motor strength normal: LUE, RUE, LLE, RLE Sensory: Normal - Psychological Associated symptoms: Normal affect, Normal mood - Skin Skin Temperature: Warm Skin Moisture: Dry Skin Color: Normal Course - Re-evaluation Re-evalutation: 07/31/18 01:10 Ribs w/Chest X-Ray 07/30/18 00:00 IMPRESSION: Acute nondisplaced lateral right eighth and ninth rib fractures with partially healed fractures of the right fourth and fifth ribs. Osteopenia. Chronic interstitial changes to the lungs bilaterally copyright 2011 [employer] All Rights Reserved Hip X-Ray 07/30/18 22:09 IMPRESSION: Old fracture deformities as above. No acute fracture or dislocation copyright 2010 [employer] All Rights Reserved Patient with old fractures as well as some new fractures at the lateral right eighth and ninth ribs. Partially healed fractures of the right fourth and fifth ribs. This is consistent with previous imaging. Requesting something for the pain. At this time I am sure it does hurt. She states that the only thing she is worried about is getting some sleep tonight. We will give her some Neurontin and some Percocet at this time. - Vital Signs Vital signs: Temp Pulse Resp BP Pulse Ox 98.3 F 76 20 152/87 H 98 07/31/18 01:45 07/31/18 01:45 07/31/18 01:45 07/31/18 01:45 07/31/18 01:45 - Laboratory Result Diagrams: 07/31/18 00:33 07/31/18 00:33 Laboratory results interpreted by me: 07/31/18 07/31/18 00:33 00:33 RDW 15.2 H Plt Count 502 H Sodium 146.9 H Chloride 111 H AST 65 H Alkaline Phosphatase 168 H Total Protein 8.9 H Discharge - Discharge Clinical Impression: Rib fractures Qualifiers: Encounter type: initial encounter Rib fracture type: multiple ribs Fracture type: closed Laterality: right Qualified Code(s): S22.41XA - Multiple fractures of ribs, right side, initial encounter for closed fracture Condition: Good Disposition: HOME, SELF-CARE Instructions: Pain Management, Rib Injuries and Fractures ([facility]) Additional Instructions: You have a rib fracture. It will be very important that you follow-up with your primary care doctor. You will likely need pain management based on your history. 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 Please return for any worsening symptoms or concerns. Prescriptions: Oxycodone HCl/Acetaminophen [Percocet 5-325 mg Tablet] 1 tab PO Q6H PRN #15 tablet PRN Reason: For Pain Referrals: TRUE SHORE NP-C [NO LOCAL MD] - Follow up as needed [facility] [Provider Group] - Follow up as needed
[2018-07-31 01:15] LABS: ALANINE AMINOTRANSFERASE 38 U/L (9-52); ALBUMIN 4.1 g/dL (3.5-5.0); ALKALINE PHOSPHATASE 168 U/L (38-126); ANION GAP 12 (5-19); ASPARTATE AMINO TRANSFERASE 65 U/L (14-36); BILIRUBIN,DIRECT 0.4 mg/dL (0.0-0.4); BILIRUBIN,TOTAL 0.5 mg/dL (0.2-1.3); BLOOD UREA NITROGEN 19 mg/dL (7-20); CALCIUM 9.6 mg/dL (8.4-10.2); CARBON DIOXIDE 24 mmol/L (22-30); CHLORIDE 111 mmol/L (98-107); GLUCOSE 106 mg/dL (75-110); SODIUM 146.9 mmol/L (137-145); TOTAL PROTEIN 8.9 g/dL (6.3-8.2)
[2018-07-31 01:22] LABS: ABSOLUTE LYMPHOCYTES# (MANUAL) 3.2 10^3/uL (0.5-4.7); ABSOLUTE MONOCYTES # (MANUAL) 0.4 10^3/uL (0.1-1.4); ABSOLUTE NEUTROPHILS# (MANUAL) 3.4 10^3/uL (1.7-8.2); BASOPHILS % (MANUAL) 0 % (0-2); EOSINOPHILS % (MANUAL) 1 % (0-6); LYMPHOCYTES % (MANUAL) 42 % (13-45); MONOCYTES % (MANUAL) 6 % (3-13); SEGMENTED NEUTROPHILS % (MAN) 48 % (42-78); TOTAL CELLS COUNTED 100
[2018-07-31 01:23] LABS: ANISOCYTOSIS SLIGHT; HYPOCHROMASIA SLIGHT; PLATELET COMMENT INCREASED; STOMATOCYTES SLIGHT; TARGET CELLS SLIGHT
[2018-07-31 01:46] VITALS: BP 152/87
--- NOTE | 2018-07-31 19:29 | EKG REPORT ---
SEVERITY:- ABNORMAL ECG - SINUS RHYTHM NONSPECIFIC T ABNORMALITIES, ANTERIOR LEADS : Confirmed by: Blanca Rowley MD 31-Jul-2018 19:28:38
== END 2018-07-31 01:46 | disposition home or self-care (01) ==
LOC: ER 21:56
DX: S22.41XA Multiple fractures of ribs, right side, initial encounter for closed fracture (principal); R55 Syncope and collapse; W19.XXXA Unspecified fall, initial encounter; Z91.81 History of falling; F17.210 Nicotine dependence, cigarettes, uncomplicated; Z90.710 Acquired absence of both cervix and uterus; Z88.0 Allergy status to penicillin
CPT/HCPCS: 93005; 99283; 36415; 85025; 80053; 73502; 71101; 93010; J3490